=== PATIENT | female | born 1935 | race Caucasian/White ===

== ENCOUNTER 2017-01-08 12:29 | Emergency (ER) | payer MEDICARE, OTHER ==
[~2017-01-08] VITALS: Ht 170.2 cm; Wt 68.6 kg
[~2017-01-08 12:29] MED LIST: ALEN70TA2 PO; AMLO-39 PO; AMT25T PO; APIX2.5T PO; CHOL200025 PO; CREST10T PO; FERR159T2 PO; HYG25 PO; MAG DELAY64 MG PO; METF500T4 PO; MULT-1073 PO; OMEP20TA24 PO
--- NOTE | 2017-01-08 12:43 | ED.REPORT ---
HPI-Extremity Problem Lower Date of Service Jan 08, 2017 ED Provider: Dr. Galo Nunez MD An 81 year old female with a history of metastasized liver cancer on chemotherapy, A-fib on anticoagulation, diabetes mellitus, hypertension, hyperlipidemia, osteoporosis and peripheral neuropathy presents to the ED complaining of bilateral foot pain that began 2 weeks ago. The patient noticed new blisters on her feet 1 week ago that have become increasingly worse over the past few days. She reports pain during ambulation and gait. Patient has had red and peeling skin for the past few months secondary to chemotherapy. She denies any recent diaphoresis, chills or fever. Patient also reports experiencing some SOB that has been chronic for the past few months and is exacerbated by exertion. Nursing Notes Stated Complaint: FEET PAIN Chief Complaint: Extremity Trauma Nursing Notes Reviewed: Yes Allergies: Coded Allergies: naproxen (Verified Allergy, Severe, WELARLINE, 01/08/17) Scheduled Alendronate Sodium (Fosamax) 70 Mg Tablet 70 MG PO WEEKLY FRIDAYS Amitriptyline (Amitriptyline) 25 Mg Tab 50 MG PO HS Amlodipine (Norvasc) 5 Mg Tablet 5 MG PO DAILY Apixaban (Eliquis) 2.5 Mg Tablet 2.5 MG PO BID Chlorthalidone (Chlorthalidone) 25 Mg Tablet 12.5 MG PO DAILY Cholecalciferol (Vitamin D3) (Vitamin D3) 2,000 Unit Tablet 2,000 UNIT PO DAILY Ferrous Sulfate, Dried (Iron) 159 Mg Tablet.er 65 MG PO DAILY Magnesium (Mag Delay) 64 Mg Tab 64 MG PO DAILY Metformin (Metformin) 500 Mg Tablet 500 MG PO BIDWM Multivits-Min/FA/Lycopene/Lut (Centrum Silver Tablet) 1 Each Tablet 1 EACH PO DAILY Omeprazole Magnesium (Prilosec Otc) 20 Mg Tablet.dr 20 MG PO DAILY Rosuvastatin Calcium (Crestor) 10 Mg Tablet 5 MG PO DAILY General Time Seen by : 12:43 Chief Complaint Foot injury right, Foot injury left Hx Obtained From: Patient Arrived By: Walk-in Onset Occurred: 1 week ago Symptom Duration: Since onset Location: : Foot left: Foot right Quality: Painful Severity: Current: Moderate Severity: Maximum: Moderate Associated with: Reports: Unable to bear weight, Unable to walk, Denies: Fever Pertinent Negative: Pt denies other symptoms Recent Healthcare: No recent hospitalization, Recent doctor visit Past Medical History Past Medical History 1. Atrial fibrillation on anticoagulation for past 2-3 years (no history of cardioversion or ablations) 2. Diabetes type 2 3. HTN 4. Dyslipidemia 5. GERD 6. Osteoporosis 7. History of SBO x 4 (first time in 2003 and last one about 5 years ago and conservatively treated at [facility]) -no surgical intervention for any of the SBO 8. Endometrial cancer for which she underwent TOBY/BSO and radiation treatment in 1991 9. Peripheral neuropathy due to diabetes type 2 10. Osteoarthritis 11. Aortic stenosis Past Surgical History 1. TOBY/BSO in 1991 for endometrial cancer 2. Appendectomy 3 Left total knee replacement 4. Colonoscopy was normal about 5 years ago 5. Bilateral cataract surgeries 6. Pacemaker Family History Noncontributory Smoking History Never Smoker Social History Other Social History: Good social support, , Local resident Ambulatory Status Independent Review of Systems Redness/peeling skin on feet Constitutional: Denies: Chills, Fever Musculoskeletal: Reports: Extremity pain (Bilateral foot pain) Skin: Denies Diaphoresis Complete sys rev & neg: except as marked. Respiratory: Reports: Shortness of breath Physical Exam Initial Vital Signs Vital Signs (First) Date Time Temp Pulse Resp B/P Pulse Ox O2 Delivery O2 Flow Rate FiO2 01/08/17 12:45 36.1 53 16 139/42 93 Room Air Neck: Supple, Non-tender, Full range of motion Upper Extremities: Vascular intact, Neuro intact, No swelling, No tenderness Neurologic: Alert, Oriented, Nonfocal Psychiatric: Mood/affect normal, Behavior normal, Normal thought content Lower Extremity / Pelvis / MS: Atraumatic, Inspection NL, Neurologic intact, Vascular intact Ankle / Foot: Atraumatic, Neurologic intact, Vascular intact Right Foot: Negative: Erythema present, Swelling present..., Tenderness present..., Warmth present Left Foot: Negative: Erythema present, Swelling present..., Tenderness present..., Warmth present ANKLE/FOOT: Large bulla over the right foot General/Constitutional: Awake, Alert, No acute distress, Well appearing, Well developed Respiratory / Chest: Atraumatic, Breath sounds NL, Breath sounds = bilat, No respiratory distress Cardiovascular: Heart rate NL, Regular rhythm Heart Sounds / Murmur: Positive: Systolic murmur present.. (III/) Skin: Atraumatic, Color NL, Warm, Dry SKIN: peeling skin at the base of the foot Procedures Bulla skin is removed - 1257 Performed by ED physician. No Shahrzad Prepped with chlorhexidine. Removed with Scissor and forceps. Patient tolerates well. No complications. Antibiotic is applied. Xeroform gauze is applied. Re-Eval/Medical Decision Med Decision/Clinical Course I think that the lowest most likely explanation for this large bulla on her foot and the cracking peeling skin of her feet is related to a complication associated with her chemotherapy. I think that follow-up with her chemotherapy doctor in [place] as the next appropriate step. The large bulla on the back of her right foot was easily unroofed and dressed with sterile dressing. There is no evidence currently of infection. Re-Evaluation/Progress : Time of Eval: 12:52 Patient Status: Condition improved Re-Evaluation/Progress Note: Bulla is opened. xeroform gauze is applied. Pt tolerates procedure well. All questions about the intended treatment plan are addressed. She understands and agrees with the plan. Counseled Regarding: Diagnosis, Need for follow-up, When/why to return to ED Discharge & Departure Impression: Primary Impression: Bulla Disposition: Home Discharge Condition All VS Reviewed: Yes Condition: Improved Patient Instructions: Bldelphine (ED) Additional Instructions: Thank you for trusting us with your care this morning. Your emergency department results are reassuring that there is no dangerous cause for concern at this time and there are no signs of infection. I believe that your symptoms are likely a reaction to the chemotherapy. I recommend that you schedule an appointment with your oncologist in the next 2-3 days for a recheck. Keep the gauze over the affected area for the next few 24 hours. Change the dressing tomorrow. - First remove the bandage and clean the area with water. - Once dry, apply bacitracin ointment over the area and place the new bandage. Schedule a follow up appointment with your primary care physician in the next week for a recheck. Take pain medication as directed for pain. Please return to the emergency department if you begin to develop any new or worsening conditions including any high fevers, shaking chills, worsening pain, redness, swelling, warmth, or pustule drainage. Referrals: Jaime Obrien DO (PCP) Scribe Attestation Portions of this note were transcribed by Chelle Rm. I, Dr. Nunez personally performed the history, physical exam and medical decision-making; I reviewed and confirmed the accuracy of the information in the transcribed note. Signed by: Zuhair Gordon, 01/08/17 4217. copies to: Jaime Obrien Kirk H MD Jan 08, 2017 12:43 CHELLE RM Jan 08, 2017 12:50
[2017-01-08 12:45] VITALS: BP 139/42; PULSE 53; RESP 16; O2SAT 93
[2017-01-08 13:21] VITALS: BP 139/42; PULSE 53; RESP 16; O2SAT 93
== END 2017-01-08 13:22 | disposition home or self-care (01) ==
LOC: SED 12:29
DX: R23.8 Other skin changes (principal); M79.672 Pain in left foot; M79.671 Pain in right foot; E11.628 Type 2 diabetes mellitus with other skin complications; E11.43 Type 2 diabetes mellitus with diabetic autonomic (poly)neuropathy; I10 Essential (primary) hypertension; K21.9 Gastro-esophageal reflux disease without esophagitis; C22.9 Malignant neoplasm of liver, not specified as primary or secondary; Z85.44 Personal history of malignant neoplasm of other female genital organs; Z95.0 Presence of cardiac pacemaker; Z92.21 Personal history of antineoplastic chemotherapy; Z79.84 Long term (current) use of oral hypoglycemic drugs; Z79.01 Long term (current) use of anticoagulants; Z79.899 Other long term (current) drug therapy; Z88.8 Allergy status to other drugs, medicaments and biological substances
CPT/HCPCS: 11200; 99283; G0463

== ENCOUNTER 2017-01-17 09:48 | Day surgery (SDC) | payer MEDICARE, OTHER ==
[~2017-01-17] VITALS: Ht 157.5 cm; Wt 71.1 kg
[2017-01-17] MEDS ORDERED: Furosemide 10 mg/mL 4 mL Inj IVPUSH ONE (10:10)
[2017-01-17 16:45] VITALS: BP 157/67; PULSE 54; RESP 16; O2SAT 96
[2017-01-17 17:09] VITALS: PULSE 64
[2017-01-17 17:30] VITALS: BP 120/60; PULSE 50; RESP 16; O2SAT 96
[2017-01-17 17:35] LABS: Mean Corpuscular Hemoglobin 37.2 pg (27.0-35.0); Mean Corpuscular Volume 114.7 fL (81-100)
[2017-01-17] MEDS ORDERED: Furosemide 10 mg/mL 2 mL Inj ONE (17:38)
[2017-01-17 17:58] LABS: Magnesium 1.7 mg/dL (1.6-2.6)
[2017-01-17] MEDS ORDERED: HepLOK Flush 100 unit/mL 5 mL Inj ONE (19:34)
--- NOTE | 2017-01-17 19:45 | NUR ---
IV Lasix: Patient arrived via wheelchair to [facility] [place] [facility]. Labs drawn and ordered Lasix 40 mg IV given via portacath. [place] [address]. Voided total of 800 mLs, lost 0.[address] May called and notified of labs and patient condition. Okay to send patient home. Plan is for Dr. May to follow up with patient in office next week. Portacath flushed with NS and Heparin and portacath d/c'd. Patient discharged home via wheelchair accompanied by .
== END 2017-01-17 23:59 | disposition home or self-care (01) ==
LOC: MOCO 09:48
PROVIDERS: ATTEND Internal Medicine
DX: I50.9 Heart failure, unspecified (principal)
CPT/HCPCS: 36415; 80053; 83735; 83880; 85027; 96374; G0463; J1642; J1940

== ENCOUNTER 2017-01-26 14:23 | Inpatient (IN) | payer MEDICARE, OTHER ==
[2017-01-26] VITALS (8 sets, daily range): BP systolic 120–160; BP diastolic 28–81; PULSE 55–58; RESP 14–20; O2SAT 88–100
[~2017-01-26] VITALS: Ht 170.2 cm; Wt 74.1 kg
[2017-01-26] MEDS ORDERED: Ondansetron 2 mg/mL 2 mL Inj IVPUSH ONE (14:30)
--- NOTE | 2017-01-26 14:34 | ED.REPORT ---
HPI-Extremity Problem Lower Date of Service Jan 26, 2017 ED Provider: Chidi Dunne MD 81 y/o female on eliquis and with a hx of metastasized liver cancer on chemotherapy, A-fib on anticoagulation, diabetes mellitus, hypertension, hyperlipidemia, osteoporosis and peripheral neuropathy presents to the ED complaining of right food pain, onset a couple of weeks. The pt was sent to the ED by Dr. May due to ischemic lower leg and admission for a possible femoral blockage as well as palliative care consultation. The pt has a worsening ulcer developing on the top of her foot. She has been taking 5mg oxycodone for the last two days, with some relief. The pt also complains of right rib pain after a fall last night. As per her , he was helping her get on the bed using a step when she fell backwards and they heard a pop. She did not directly land on the floor and did not hit her head or lose consciousness. The pt also complains of shortness of breath and states "I want to grunt". Nursing Notes Stated Complaint: RT FOOT/POSS FEMORAL BLOCKAGE/SENT BY DOCTOR Nursing Notes Reviewed: Yes ([employer] not reconciled - EMR indicates Eliquis use) Allergies: Coded Allergies: naproxen (Verified Allergy, Severe, WELTS, 01/08/17) Scheduled Alendronate Sodium (Fosamax) 70 Mg Tablet 70 MG PO WEEKLY FRIDAYS Amitriptyline (Amitriptyline) 25 Mg Tab 50 MG PO HS Amoxicillin (Amoxicillin) 500 Mg Capsule 500 MG PO BID Apixaban (Eliquis) 2.5 Mg Tablet 2.5 MG PO BID Cholecalciferol (Vitamin D3) (Vitamin D3) 2,000 Unit Tablet 2,000 UNIT PO DAILY Ferrous Sulfate (Ferrous Sulfate) 325 Mg Tablet 325 MG PO DAILY Folic Acid (Folic Acid) 0.8 Mg Capsule 0.8 MG PO QPM Furosemide (Furosemide) 80 Mg Tab 80 MG PO QAM Hydrocodone-Acetaminophen 5-325 mg (Hydrocodone-Acetaminophen 5-325 mg) 1 Each Tablet 1 EACH PO Q4hrs Magnesium Chloride (Mag64) 64 Mg Tablet.er 64 MG PO DAILY Multivits-Min/FA/Lycopene/Lut (Centrum Silver Tablet) 1 Each Tablet 1 EACH PO DAILY Omeprazole Magnesium (Prilosec Otc) 20 Mg Tablet.dr 20 MG PO DAILY Potassium Chloride (Potassium Chloride) 20 Meq Tab.er.prt 20 MEQ PO BID Potassium Chloride ER (Potassium Chloride ER) 8 Meq Tablet 8 MEQ PO Q2D Rosuvastatin Calcium (Crestor) 10 Mg Tablet 5 MG PO DAILY Scheduled PRN Acetaminophen (Acetaminophen) 500 Mg Tablet 500 MG PO Q6H PRN PRN For Pain Loperamide (Loperamide) 2 Mg Capsule 4 MG PO Q4H PRN PRN For Diarrhea or Loose Stool Ondansetron (Ondansetron) 8 Mg Tablet 8 MG PO TID PRN PRN For Nausea Prochlorperazine Maleate (Prochlorperazine) 10 Mg Tablet 10 MG PO QID PRN PRN For Nausea General Time Seen by MD: 14:28 Chief Complaint Other (right foot pain) Hx Obtained From: Patient, Spouse, Son Arrived By: Wheelchair Onset Occurred: More than a week ago... 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 Hale a few days ago (01/2017) Past Medical History 1. Atrial fibrillation on anticoagulation for past 2-3 years (no history of cardioversion or ablations) (on Eliquis) 2. Diabetes type 2 3. HTN 4. Dyslipidemia 5. GERD 6. Osteoporosis 7. History of SBO x 4 (first time in 2003 and last one about 5 years ago and conservatively treated at [facility]) -no surgical intervention for any of the SBO 8. Endometrial cancer for which she underwent TOBY/BSO and radiation treatment in 1991 9. Peripheral neuropathy due to diabetes type 2 10. Osteoarthritis 11. Aortic stenosis (critical, not candidate for mechanical intervention) 12. Mitral valve stenosis (critical, not candidate for mechanical intervention) 13. Metastatic cholangiocarcinoma Past Surgical History 1. TOBY/BSO in 1991 for endometrial cancer 2. Appendectomy 3 Left total knee replacement 4. Colonoscopy was normal about 5 years ago 5. Bilateral cataract surgeries 6. Pacemaker Family History Noncontributory Smoking History Never Smoker Social History Other Social History: Good social support, , Local resident Ambulatory Status Independent Review of Systems Reports: ulcer on right foot Reports: right side rib pain Musculoskeletal: Reports: Extremity pain (right foot pain) Neurologic: Denies: Change LOC Complete sys rev & neg: except as marked. Respiratory: Reports: Shortness of breath Physical Exam Initial Vital Signs Vital Signs (First) Date Time Temp Pulse Resp B/P Pulse Ox O2 Delivery O2 Flow Rate FiO2 01/26/17 14:37 36.3 55 14 121/62 93 Room Air 01/26/17 16:29 2 Initial VS: Reviewed Head / Eyes: Atraumatic, Normocephalic Neck: Supple, Non-tender, Full range of motion Abdomen / GI: Soft, Non-tender Upper Extremities: Vascular intact, Neuro intact, No swelling, No tenderness Skin: Warm, Dry, No cyanosis Neurologic: Alert, Oriented, Nonfocal Lower Extremity / Pelvis / MS: Atraumatic, No deformity, Neurologic intact Right Leg / Calf: Positive: Pulses distal absent, Swelling present... (Moderate ), Negative: Warmth present Left Leg / Calf: Positive: Pulses distal decreased Right leg dusky and cool. Left leg edematous with warmth. Ankle / Foot: Atraumatic, No deformity, Neurologic intact Ichemic toes with skin breaking down. General/Constitutional: Awake, Alert Distress / Hydration: Positive: Distress moderate Appearance / Presentation: Positive: Cachectic, Ill appearing/not toxic ( chronically Ill), Uncomfortable Respiratory / Chest: Atraumatic, Breath sounds NL, Breath sounds = bilat, No respiratory distress, No rales, No rhonchi, No wheezing, No crepitus Port-a-cath in place Mild right sided chest tenderness No subcutaneous emphysema Cardiovascular: Heart rate NL, Regular rhythm, No gallop, No rubs Heart Sounds / Murmur: Positive: Murmur present... (III/) Interpretation & Diagnostics Lab Results Interpretation Result Diagram: 01/26/17 1534 01/26/17 1534 Test 01/26/17 15:34 01/26/17 15:55 White Blood Count 15.1th/mm3 (3.8-10.1) Red Blood Count 3.46mil/mm3 (3.90-5.20) Hemoglobin 12.4g/dL (12.0-15.6) Hematocrit 37.6% (35.0-46.0) Mean Corpuscular Volume 108.7fL (81-100) Mean Corpuscular Hemoglobin 35.8pg (27.0-35.0) Mean Corpuscular Hemoglobin Concent 33.0% (32.0-37.0) Red Cell Distribution Width 14.7% (12.3-15.4) Platelet Count 125bil/L (150-400) Neutrophils (%) (Auto) 88.5% (40-74) Lymphocytes (%) (Auto) 2.1% (14-46) Monocytes (%) (Auto) 9.0% (4-12) Eosinophils (%) (Auto) 0% (0-5) Basophils (%) (Auto) 0.1% (0-3) Sodium Level 133mEq/L (134-144) Potassium Level 5.5mEq/L (3.5-5.2) Chloride Level 90mEq/L (97-108) Carbon Dioxide Level 26mmol/L (18-29) Blood Urea Nitrogen 50mg/dL (8-27) Creatinine 1.36mg/dL (0.57-1.00) Estimat Glomerular Filtration Rate 53mL/min (>59) Glucose Level 259mg/dL (60-99) Calcium Level 9.0mg/dL (8.5-10.1) Total Bilirubin 1.9mg/dL (0.0-1.2) Aspartate Amino Transf (AST/SGOT) 27U/L (0-50) Alanine Aminotransferase (ALT/SGPT) 19U/L (0-32) Alkaline Phosphatase 86U/L (25-165) Total Creatine Kinase 48U/L (21-215) Total Protein 6.1g/dL (6.4-8.4) Albumin 3.3g/dL (3.4-5.0) Lactic Acid Level 2.1mmol/L (0.4-2.0) Lab Results Interpretation: He received positive leukocytosis CMP mild renal insufficiency, borderline potassium, moderately elevated glucose Lactic acid elevated CK normal ECG Interpretation ECG Interpretation: Ventricular paced rhythm. Rate 55. No significant change from previous ECG. Time: 15:06 Interpreted by: ED physician X-Ray Chest Interpretation Chest Xray Interpretation: IMPRESSION: 1. Bilateral perihilar infiltrates suspicious for pulmonary edema secondary to congestive heart failure. 2. Small bilateral pleural effusions. 3. Limited evaluation of the ribs due to osteopenia and technique. Dictated by: Hernan Klein M.D. on 01/26/2017 at 16:05 Approved by: Hernan Klein M.D. on 01/26/2017 at 16:10 View: Portable, 1 view Interpretation / Wet Read by: Interpret - Radiologist Re-Eval/Medical Decision Med Decision/Clinical Course This is an unfortunate, complicated 81-year-old female multiple comorbidities that includes severe coronary disease, critical aortic and mitral valve stenosis that is not amenable to surgical management, and a history of metastatic cholangiocarcinoma who is referred by the cardiology office for admission secondary to ischemic right leg. In recent weeks patient's developed increasing pain and discomfort, swelling and ulceration of the right foot. Please see the podiatry consultation a few days ago, vascular ultrasound revealed ischemic disease, and according to Dr. May, recent imaging obtained at outside facilities here trying to sort out if she was a candidate for surgical intervention on the valvular disease of the heart, revealed significant occlusion of the iliac. The patient is now developed rest pain, increasing pain and discomfort, cold foot, and despite initiation of oxycodone 2 days ago remains very uncomfortable-so was referred to the emergency department. Dr. 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 Additionally Dr. Angeles Palafox requested palliative care consultation. On arrival the patient arrives in significant pain and discomfort. She has a swollen, ischemic right leg, she has no palpable pulses in the foot is cool with several early necrotic toes. His dorsal ulceration, I do not appreciate overt signs of infection on clinical exam, but the patient's with high wrist has moderate leukocytosis, and was started on IV Zosyn. Patient has a history of atrial fibrillation and is chronically anticoagulated and Eliquis has had today's dose. I discussed with cardiology and pharmacy, the patient's being started on a heparin drip without a bolus to transition to a titratable anticoagulant given the possibility of ammunition assembly ii laborer intervention at some point. The patient's titrated pain medicine with clinical improvement. I briefly discussed the case with personnel from the palliative care team, and formal consultation been requesting likely occur tomorrow. She is being managed for pain control, and consultations as described above. Source of Hx: Old records Re-Evaluation/Progress : Time of Eval: 17:35 Re-Evaluation/Progress Note: Rechecked pt. Discussed lab results, imaging results, diagnosis and plan to admit. Pt understands and agrees with the plan for admission. All questions addressed. Consultation #1: Call Returned at: 14:53 Float Operator: Agrees with plan Note: Nurse for palliative care agrees with the plan. Consultation #2: Referral / Consult Name: Lokesh Turcios Consulted With: Hospitalist Call Returned at: 16:49 Float Operator: Will see patient, Agrees with eval, Agrees with plan, Accepts admit Differential Diagnosis: Positive: Arterial occlus/ischemia, Negative: Abrasion, Compartment syndrome, Greater trochant fracture, Laceration, Open fracture, Sprain, Strain, Tripod fracture Counseled Regarding: Diagnosis, Lab results, Need for admission Discharge & Departure Impression: Primary Impression: Ischemia of right lower extremity Additional Impression: Anticoagulated by anticoagulation treatment Disposition: ADMITTED TO HOSPITAL Discharge Condition All VS Reviewed: Yes Referrals: Jaime Obrien DO (PCP) Scribe Attestation Portions of this note were transcribed by Oriana Pineda. I,, personally performed the history, physical exam and medical decision-making;I reviewed and confirmed the accuracy of the information in the transcribed note. Signed by Zuhair Wrne. 01/26/17 17:36 copies to: Jaime Obrien Matthew F MD Jan 26, 2017 14:34 Oriana Pineda Jan 26, 2017 14:44
[2017-01-26] MEDS ORDERED: Heparin 25K Unit/500mL 0.45 NS 25,000 UNIT in IV Premix 1 EACH IV ONE (14:45)
[2017-01-26] MEDS: HYDROmorphone 0.5 mg/0.5 mL iSecure Syringe IVPUSH PRN ×2 (15:34→15:57)
[2017-01-26 15:38] LABS: BASOPHILS % (AUTO) 0.1 % (0-3); EOSINOPHILS % (AUTO) 0 % (0-5); Mean Corpuscular Hemoglobin 35.8 pg (27.0-35.0); Mean Corpuscular Volume 108.7 fL (81-100); NEUTROPHILS % (AUTO) 88.5 % (40-74); Platelet Count 125 bil/L (150-400)
[2017-01-26] MEDS ORDERED: Piperacillin-Tazo 3.375 Gm Inj 3.375 GM in Dextrose 5% Minibag Plus 50 ML IV ONE (15:50)
[2017-01-26] MEDS ORDERED: ACET-171 PO (16:08)
[2017-01-26] MEDS ORDERED: AMOX500C2 PO (16:08)
[2017-01-26] MEDS ORDERED: HYDR-4003 PO (16:08)
[2017-01-26] MEDS ORDERED: FRSM80T PO (16:08)
[2017-01-26] MEDS ORDERED: FOLI0.8C PO (16:08)
[2017-01-26] MEDS ORDERED: LOPE2CAP PO (16:11)
[2017-01-26] MEDS ORDERED: POTA20TA16 PO (16:11)
[2017-01-26] MEDS ORDERED: POTA8TAB8 PO (16:11)
[2017-01-26] MEDS ORDERED: ONDA-54 PO (16:11)
--- NOTE | 2017-01-26 16:12 | DRSVH ---
PROCEDURE: X-RAY CHEST ONE VIEW, PORTABLE ([id number]) INDICATIONS: 81 year-old woman with chest pain after fall. TECHNIQUE: One view of the chest was acquired. COMPARISON: [facility], CR, XR CHEST 1VW, 01/03/2017, 15:19. [facility], CR, XR CHEST 1VW (PORTABLE), 05/14/2016, 15:38. FINDINGS: Surgical changes and devices: There is a cardiac pacemaker in expected position. A Port-A-Cath is se en on the right. Lungs and pleura: Bilateral perihilar infiltrates consistent with pulmonary edema. There is a small right pleural effusion and possible trace left pleural effusion. No pleural effusions or pneumothorax . Mediastinum: Mediastinal contours appear normal. Heart size is normal. Bones and chest wall: No suspicious bony lesions. Overlying soft tissues appear unremarkable. Bila teral shoulder joint degeneration. IMPRESSION: 1. Bilateral perihilar infiltrates suspicious for pulmonary edema secondary to congestive heart failu re. 2. Small bilateral pleural effusions. 3. Limited evaluation of the ribs due to osteopenia and technique. Dictated by: Hernan Klein M.D. on 01/26/2017 at 16:05 Approved by: Hernan Klein M.D. on 01/26/2017 at 16:10
[2017-01-26] MEDS ORDERED: PROC10TA PO (16:14)
[2017-01-26] MEDS ORDERED: OMEP20TA24 PO (16:14)
[2017-01-26] MEDS ORDERED: FERR-83 PO (16:15)
[2017-01-26] MEDS ORDERED: MAGN64TA7 PO (16:23)
[2017-01-26] MEDS ORDERED: Alum-Mag Hydrox-Simeth 30 mL Suspension PO PRN (16:55)
[2017-01-26] MEDS ORDERED: HYDROcodone-APAP 5-325 mg Tablet PO PRN (16:55)
[2017-01-26] MEDS ORDERED: Polyethylene Glycol (PEG) 17 Gm Powder PO PRN (16:55)
[2017-01-26] MEDS ORDERED: Ondansetron 2 mg/mL 2 mL Inj IVPUSH PRN (16:55)
[2017-01-26] MEDS ORDERED: Heparin 25K Unit/500mL 0.45 NS 25,000 UNIT in IV Premix 1 EACH IV SCH (18:05)
--- NOTE | 2017-01-26 18:11 | PCM.HPMED ---
Subjective Date of Service Jan 26, 2017 Primary Provider: Admitting Physician: Lokesh Turcios DO Primary Care Physician: Jaime Obrien DO Attending Physician: Lokesh Turcios DO Chief Complaint: Ischemic right foot History of Present Illness: Patient is an 81-year-old female past medical history significant for metastatic liver cancer on chemotherapy up until 2 months ago, in addition to atrial fibrillation, diabetes mellitus hypertension osteoporosis, and more recently peripheral artery disease leading to occlusion and finally complete cessation of blood flow to right lower extremity. Given poor response to chemotherapy progression of cancer patient had been moving a palliative direction for past 2 months, and given extensive medical history when she initially developed ischemic right lower extremity it was thought supportive care was patient's best intervention. She had been seen by health outcomes liaison couple days prior who felt no intervention could be considered, however on follow-up visit with parking enforcement manager Dr. May earlier today there was some consideration of possible thrombolytic to be to restore blood flow to foot. Though this would offer little benefit the patient's multiple comorbidities, it may offer some palliation of pain significantly improve but life patient has left. Family agrees as this patient that her throat measures are not with there desiring however they are hopeful that this relatively noninvasive procedure to restore blood flow and in addition restore good deal of ambulation and quality of life in addition to reducing pain. has additional concern for right rib which he heard pop last night while assisting his to bed. Patient has pre-existing effusion on right side, does not cause significant respiratory distress but does cause mild increase in work of breathing. During my evaluation addition to reviewing history detailed above, I confirm the patient that though she does not desire heroic intervention, she is willing to accept a moderate degree of risk if it may offer an improved quality of life. Her pain has been well-controlled at this point with a lower dose of oxycodone as prescribed a couple of days prior since ischemic foot developed. At time of my evaluation patient notes pain present but not severe. Said shortness of breath is mild but her baseline over past couple of weeks. Denies any overt chest pains or palpitations. Appetite has been good she has not endorsed any nausea or vomiting recently. No fever chills noted. Review of Systems: 10 point review of systems is conducted entirely negative except for pertinent positives and negatives included above history of present illness Allergies Coded Allergies: naproxen (Verified Allergy, Severe, WELTS, 01/08/17) Home Medications Alendronate Sodium (Fosamax) 70 Mg Tablet 70 MG PO WEEKLY FRIDAYS Amitriptyline (Amitriptyline) 25 Mg Tab 50 MG PO HS Amoxicillin (Amoxicillin) 500 Mg Capsule 500 MG PO BID Apixaban (Eliquis) 2.5 Mg Tablet 2.5 MG PO BID Cholecalciferol (Vitamin D3) (Vitamin D3) 2,000 Unit Tablet 2,000 UNIT PO DAILY Ferrous Sulfate (Ferrous Sulfate) 325 Mg Tablet 325 MG PO DAILY Folic Acid (Folic Acid) 0.8 Mg Capsule 0.8 MG PO QPM Furosemide (Furosemide) 80 Mg Tab 80 MG PO QAM Hydrocodone-Acetaminophen 5-325 mg (Hydrocodone-Acetaminophen 5-325 mg) 1 Each Tablet 1 EACH PO Q4hrs Magnesium Chloride (Mag64) 64 Mg Tablet.er 64 MG PO DAILY Multivits-Min/FA/Lycopene/Lut (Centrum Silver Tablet) 1 Each Tablet 1 EACH PO DAILY Omeprazole Magnesium (Prilosec Otc) 20 Mg Tablet.dr 20 MG PO DAILY Potassium Chloride (Potassium Chloride) 20 Meq Tab.er.prt 20 MEQ PO BID Potassium Chloride ER (Potassium Chloride ER) 8 Meq Tablet 8 MEQ PO Q2D Rosuvastatin Calcium (Crestor) 10 Mg Tablet 5 MG PO DAILY Scheduled PRN Acetaminophen (Acetaminophen) 500 Mg Tablet 500 MG PO Q6H PRN PRN For Pain Loperamide (Loperamide) 2 Mg Capsule 4 MG PO Q4H PRN PRN For Diarrhea or Loose Stool Ondansetron (Ondansetron) 8 Mg Tablet 8 MG PO TID PRN PRN For Nausea Prochlorperazine Maleate (Prochlorperazine) 10 Mg Tablet 10 MG PO QID PRN PRN For Nausea PMH 1. Atrial fibrillation on anticoagulation for past 2-3 years (no history of cardioversion or ablations) (on Eliquis) 2. Diabetes type 2 3. HTN 4. Dyslipidemia 5. GERD 6. Osteoporosis 7. History of SBO x 4 (first time in 2003 and last one about 5 years ago and conservatively treated at [facility]) -no surgical intervention for any of the SBO 8. Endometrial cancer for which she underwent TOBY/BSO and radiation treatment in 1991 9. Peripheral neuropathy due to diabetes type 2 10. Osteoarthritis 11. Aortic stenosis (critical, not candidate for mechanical intervention) 12. Mitral valve stenosis (critical, not candidate for mechanical intervention) 13. Metastatic cholangiocarcinoma Surgical History 1. TOBY/BSO in 1991 for endometrial cancer 2. Appendectomy 3 Left total knee replacement 4. Colonoscopy was normal about 5 years ago 5. Bilateral cataract surgeries 6. Pacemaker Family History Patient can recall no significant family history of either parent Social History Hx Alcohol Use: No Hx Substance Use: No Hx Tobacco Use: No Smoking Status: Never Smoker Exam Vital Signs Vital Sign - Last Date Time Temp Pulse Resp B/P Pulse Ox O2 Delivery O2 Flow Rate FiO2 01/26/17 18:00 36.4 56 17 124/56 92 Nasal Cannula 2.00 General: Alert, Oriented X3, Cooperative, Moderate Distress, Other (patient suffers from severe muscle wasting, cachectic in appearance. ) Eyes: PERRLA, Other (mild scleral icterus) Mouth: Mucous Membr Moist/[place] Chest & Lungs: Chest Wall Normal (chest wall is significant for Ahlagd-t-Euoj present on right side as well as pacemaker present on left side), Other (there are diminished breath sounds on right side and crackles noted in left lung base) Cardiovascular: Other (irregular rate with regular rhythm) Extremities: Other (right lower extremity is clearly cyanotic with no pulse palpable and dorsal pedis region. It is extremely painful to touch there is a large ulceration on dorsal aspect of foot in addition to smaller petechial changes and some necrotic areas noted on multiple digits of right foot. Left lower extremity also demonstrates some degree of ischemia but there is only redness and no mateusz blackness or necrosis visible on this foot, neither is there any open ulcerations present. Pulses are diminished but palpable on left side and dorsal pedis region. ) Neurological: Grossly Neurologically Intact Lab and Diagnostics Result Diagram: 01/26/17 1534 01/26/17 1534 Assessment & Plan This patient is a very unfortunate 81-year-old female with metastatic carcinoma of liver in addition to multiple cardiovascular conditions likely leading to 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 #. Ischemic right lower extremity - Given the necrosis and skin breakdown in addition to questionable evidence of infection we will continue patient on Zosyn at this time which was initially provided in emergency department - Cardiology has already referred patient to emergency department and will follow along with care. Dr. May will be discussing case with supervisor delivery department [employer] consultant tomorrow to consider possibility of thrombolectomy in next 1-2 days - Partial pain relief has been achieved with patient's home medication of oxycodone, will provide additional when necessary medications while patient here including IV morphine. May consider titrating her medications to effect #Metastatic liver cancer - This has been determined to be a terminal condition, and as such chemotherapy has ceased as of 2 months prior - If patient's hospitalization improved prolonged may consider reviewing case further with oncologist during this hospitalization - Given patient's multiple comorbidities, and very complex medical conditions in addition to this refractory cancer, palliative care has been consulted to consider best possible interventions during this hospitalization and moving forward on the request of Dr. May. #Atrial fibrillation - Patient had them on Eloquis, but given possible surgical procedure by interventional cardiology will transition to heparin drip at this time which would more easily reversed if surgical intervention is undergone - We will continue to monitor on telemetry overnight, the patient appears hemodynamically stable emergency department. #Cardiovascular disease #Congestive heart failure #Valvular heart disease - Continue patient's home medications including statin #Pleural effusion - Supplemental oxygen as needed - Continue Lasix therapy - May consider drainage while anticoagulation therapy is reversed if breathing function becomes more compromised #Osteoporosis - Continue weekly Alendronate in addition to vitamin D supple mentation. #Hyperkalemia: - Holding home supplement - Continue to trend. - Monitoring on telemetry Pain Evaluation: Adequate Pain Control VTE Prophylaxis: Other (heparin drip, per cardiac protocol. ) Resuscitation Status: DNR/DNI:Do Not Resuscitate/Intubate Time spent 65 minutes Lokesh Turcios DO Jan 26, 2017 18:10
[2017-01-26] MEDS ORDERED: Ondansetron 8 mg ODT Tablet PO PRN (18:20)
--- NOTE | 2017-01-26 18:31 | NUR ---
Admit Patient report called by Oscar Linares RN in ED. Patient arrived to room 3012 via gurney and was slid over with slider board. Patient was in intolerable pain of 10/10 pain to right leg. Patient was administered IV morphine 2mg PRN as ordered. Patient has large circular wound on top of right foot. Patient toes on right foot are dark blue in color and dry skin. Patient right heal is cracked. Right leg cold to touch. Patient alert, but confused at times. Patient heparin drip running at 800units/Kg/hr. Patient next PTT ordered for 1030. Patient oriented to room, staff, visiting hours, call light and television. Addendum: 01/26/17 at 1848 by ANGELICA VELAZQUEZ RN Wound on top of right food measures [id number]. Addendum: 01/26/17 at 1856 by ANGELICA VELAZQUEZ RN Correction to right foot sore [id number] not cm
[2017-01-26] MEDS ORDERED: Potassium Chloride 20 mEq SR Tablet PO SCH (20:30)
[2017-01-26] MEDS: Heparin Protocol Boluses IVPUSH PRN (22:30)
[2017-01-27] VITALS (10 sets, daily range): BP systolic 104–137; BP diastolic 53–67; PULSE 54–60; RESP 18–20; O2SAT 87–97
[2017-01-27] MEDS: Piperacillin-Tazo 3.375 Gm Inj 3.375 GM in Dextrose 5% Minibag Plus 50 ML IV SCH ×3 (00:34→17:18)
[2017-01-27 01:35] LABS: APPEARANCE,URINE CLEAR (CLEAR,HAZY); COLOR,URINE YELLOW (YELLOW); OCCULT BLOOD,URINE NEGATIVE (NEGATIVE); UROBILINOGEN,URINE NORMAL (NORMAL)
[2017-01-27 04:46] LABS: Mean Corpuscular Hemoglobin 36.3 pg (27.0-35.0); Mean Corpuscular Volume 112 fL (81-100)
[2017-01-27 04:47] LABS: BASOPHILS % (AUTO) 0 % (0-3); EOSINOPHILS % (AUTO) 0 % (0-5); MONOCYTES % (AUTO) 11 % (4-12); NEUTROPHILS % (AUTO) 85 % (40-74); Platelet Count 132 bil/L (150-400)
--- NOTE | 2017-01-27 06:27 | NUR ---
Pain/Resp Pt with intermittent R foot pain, Morphine IV given x2 with good results. Pt [place] and intermittently confused but very pleasant. Unable to palpate pedal pulses r/t wound on top of foot and pt unable to tolerate any touch to her feet. Pt placed on 2L O2 per NC due to pt desating into high 80's on RA while asleep.
[2017-01-27] MEDS ORDERED: 0.9% Sodium Chloride 1,000 ML IV SCH (08:15)
--- NOTE | 2017-01-27 08:23 | PCM.PNMED ---
Subjective Date of Service Jan 27, 2017 Subjective Pt had difficulty night. [place] cold at times. Difficulty sleeping. Notes feeling "out of it" and "not myself", unsure in pain medications are playing a role, though they at least controlled her pain. Denies fever/chills this morning. Does have some appetite but NPO for possible procedure. Exam Vital Signs Vital Sign - Last Date Time Temp Pulse Resp B/P Pulse Ox O2 Delivery O2 Flow Rate FiO2 01/27/17 06:18 55 01/27/17 05:20 36.2 18 137/67 97 Nasal Cannula 4.00 Intake and Output 01/26/17 01/26/17 01/27/17 Cumulative From/Thru 15:00 23:00 07:00 01/26/17 14:37 - 01/27/17 05:54 Intake Total 50 ml 0 ml 50 ml Output Total 200 ml 200 ml Balance 50 ml -200 ml -150 ml Intake Oral 0 ml 0 ml IV Total 50 ml 50 ml Output Urine Total 200 ml 200 ml Exam General: Alert, Oriented X3, Cooperative, Moderate Distress, Patient suffers from severe muscle wasting, cachectic in appearance. ) Eyes: PERRLA, Mouth: Mucous Membranes Moist/[place] Chest & Lungs: Chest Wall Normal (chest wall is significant for Mdcqcz-e-Elrt present on right side as well as pacemaker present on left side), Other (there are diminished breath sounds on right side and crackles noted in left lung base) Cardiovascular: Irregular rate with bradycardia (+)Loud systolic mummur palpable Extremities: Right lower extremity is clearly cyanotic with no pulse palpable in dorsal pedis region though some warmth is present suggested at least some limtied blood flow. It is extremely painful to touch there is a large ulceration on dorsal aspect of foot in addition to smaller petechial changes and some necrotic areas noted on multiple digits of right foot. Left lower extremity also demonstrates some degree of ischemia but there is only redness and no mateusz blackness or necrosis visible on this foot, neither is there any open ulcerations present. Pulses are diminished but palpable on left side and dorsal pedis region. Neurological: Grossly Neurologically Intact IVs and Medications Medications Reviewed: Medications were reviewed in detail Lab and Diagnostics Result Diagram: 01/27/17 0430 01/27/17 0430 Assessment & Plan This patient is a very unfortunate 81-year-old female with metastatic carcinoma of liver in addition to multiple cardiovascular conditions likely leading to 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 #. Ischemic right lower extremity - Given the necrosis and skin breakdown in addition to questionable evidence of infection we will continue patient on Zosyn at this time which was initially provided in emergency department - Cardiology has already referred patient to emergency department and will follow along with care. Dr. May will be discussing case with rolled glass crosscutter nurse practitioner per diem tomorrow to consider possibility of thrombolectomy in next 1-2 days. Consult remains pending. - Partial pain relief has been achieved with patient's home medication of oxycodone, will provide additional when necessary medications while patient here including IV morphine. May consider titrating her medications to effect, does appear to have impomaired pt's mentation to a degree. - Pt kept NPO for possible procedure, IVFs started in response. #Metastatic liver cancer - This has been determined to be a terminal condition, and as such chemotherapy has ceased as of 2 months prior - If patient's hospitalization improved prolonged may consider reviewing case further with oncologist during this hospitalization - Given patient's multiple comorbidities, and very complex medical conditions in addition to this refractory cancer, palliative care has been consulted to consider best possible interventions during this hospitalization and moving forward on the request of Dr. May. #Atrial fibrillation - Patient had them on Eloquis, but given possible surgical procedure by interventional cardiology now held and patient maintained on heparin drip - We will continue to monitor on telemetry . Pt hemodynamically stable, rate low to normal. #Cardiovascular disease #Congestive heart failure #Valvular heart disease - Continue patient's home medications including statin #Pleural effusion - Supplemental oxygen as needed - Continue Lasix therapy - May consider drainage while anticoagulation therapy is reversed if breathing function becomes more compromised #Osteoporosis - Continue weekly Alendronate in addition to vitamin D supple mentation. #Hyperkalemia: #Hyperglycemia/DM - Holding home supplement - GIven NPO status and elevated K+ providing REGULAR insilun sliding scale, May transition to Lispro if diet started/K+ Normalizes. - Continue to trend. - Monitoring on telemetry Pain Evaluation: Adequate Pain Control VTE Prophylaxis: Other (heparin drip, per cardiac protocol. ) Resuscitation Status: DNR/DNI:Do Not Resuscitate/Intubate Time spent 30 minutes Lokesh Turcios DO Jan 27, 2017 08:23
--- NOTE | 2017-01-27 09:00 | NUR ---
non-blanchable/possible pressure ulcer Upon assessment this nurse noticed a non-blanchable area on pts coccyx with skin breakdown/possible press measuring [id number] no drainage. Placed mepolex dressing over area, placed order for wound care. Called for P500 but none were available. Performed Q2 turns when pt would allow.
[2017-01-27] MEDS: Pantoprazole 40 mg ER24 Tablet PO SCH (09:11)
[2017-01-27] MEDS: Magnesium Chloride SR 64 mg ER24 Tablet PO SCH (09:11)
[2017-01-27] MEDS: Insulin Human REGular 300 Unit/3 mL Inj SUBQ SCH ×2 (09:12→14:55)
--- NOTE | 2017-01-27 11:23 | PCM.CHPCAR ---
Consult Subjective Date of service Jan 27, 2017 Date of admit Jan 26, 2017 at 16:59 Provider Requesting Consult Requesting Provider: Lokesh Turcios DO Primary Care Physician Primary Care Physician: Jaime Obrien DO Chief Complaint Nonhealing right foot ulcer History of Present Illness 81 yo elderly frail very medically complex woman with history of metastatic cholangiocarcinoma, critical aortic stenosis, severe mitral stenosis, diastolic heart failure, and peripheral artery disease admitted with nonhealing right foot ulcer. Patient has been chronically ill for the past few months due to her very severe multiple complex illnesses. However, she has had this wound on her right foot for the past couple of weeks that has gotten worse. She saw Dr. May yesterday in cardiology clinic and was admitted to the hospital for further care of her right foot ulcer. On history, her biggest concerns today are fatigue and shortness of breath along with right foot pain. She feels comfortable resting with oxygen but is not able to much activity. Denies chest pain or syncope. Also denies fevers or chills. 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 # HTN # Diabetes # Recurrent intrahepatic cholangiocarcinoma Bedside Blood Glucose: 221 Scheduled Alendronate Sodium (Fosamax) 70 Mg Tablet 70 MG PO WEEKLY (Reported) FRIDAYS Amitriptyline (Amitriptyline) 25 Mg Tab 50 MG PO HS (Reported) Amoxicillin (Amoxicillin) 500 Mg Capsule 500 MG PO BID (Reported) Apixaban (Eliquis) 2.5 Mg Tablet 2.5 MG PO BID (Reported) Cholecalciferol (Vitamin D3) (Vitamin D3) 2,000 Unit Tablet 2,000 UNIT PO DAILY (Reported) Ferrous Sulfate (Ferrous Sulfate) 325 Mg Tablet 325 MG PO DAILY (Reported) Folic Acid (Folic Acid) 0.8 Mg Capsule 0.8 MG PO QPM (Reported) Furosemide (Furosemide) 80 Mg Tab 80 MG PO QAM (Reported) Hydrocodone-Acetaminophen 5-325 mg (Hydrocodone-Acetaminophen 5-325 mg) 1 Each Tablet 1 EACH PO Q4hrs (Reported) Magnesium Chloride (Mag64) 64 Mg Tablet.er 64 MG PO DAILY (Reported) Multivits-Min/FA/Lycopene/Lut (Centrum Silver Tablet) 1 Each Tablet 1 EACH PO DAILY (Reported) Omeprazole Magnesium (Prilosec Otc) 20 Mg Tablet.dr 20 MG PO DAILY (Reported) Potassium Chloride (Potassium Chloride) 20 Meq Tab.er.prt 20 MEQ PO BID ( Reported) Potassium Chloride ER (Potassium Chloride ER) 8 Meq Tablet 8 MEQ PO Q2D ( Reported) Rosuvastatin Calcium (Crestor) 10 Mg Tablet 5 MG PO DAILY (Reported) Scheduled PRN Acetaminophen (Acetaminophen) 500 Mg Tablet 500 MG PO Q6H PRN PRN For Pain ( Reported) Loperamide (Loperamide) 2 Mg Capsule 4 MG PO Q4H PRN PRN For Diarrhea or Loose Stool (Reported) Ondansetron (Ondansetron) 8 Mg Tablet 8 MG PO TID PRN PRN For Nausea (Reported) Prochlorperazine Maleate (Prochlorperazine) 10 Mg Tablet 10 MG PO QID PRN PRN For Nausea (Reported) Discontinued Medications Amlodipine (Norvasc) 5 Mg Tablet 5 MG PO DAILY (Reported) Chlorthalidone (Chlorthalidone) 25 Mg Tablet 12.5 MG PO DAILY (Reported) Ferrous Sulfate, Dried (Iron) 159 Mg Tablet.er 65 MG PO DAILY (Reported) Magnesium (Mag Delay) 64 Mg Tab 64 MG PO DAILY (Reported) Metformin (Metformin) 500 Mg Tablet 500 MG PO BIDWM (Reported) Omeprazole Magnesium (Prilosec Otc) 20 Mg Tablet.dr 20 MG PO DAILY (Reported) Current Inpatient Medications Current Medications Hydromorphone HCl 0.25 mg Q15MIN PRN IVPUSH Last administered on 01/26/17 15: 57; Admin Dose 0.25 MG; Start 01/26/17 at 14:30; Stop 01/26/17 at 17:29; Status DC Al Hydrox/Mg Hydrox/Simethicone 30 ml Q6H PRN PO; Start 01/26/17 at 16:55 Ondansetron HCl 4 to 8 mg Q4H PRN IVPUSH Last administered on 01/26/17 17:55; Admin Dose 8 MG; Start 01/26/17 at 16:55 Senna 17.2 mg BID PRN PO; Start 01/26/17 at 16:55 Polyethylene Glycol 17 gm DAILY PRN PO; Start 01/26/17 at 16:55 Acetaminophen/ Hydrocodone Bitart 1-2 TABS Q4H PRN PO; Start 01/26/17 at 16:55 Morphine Sulfate 1-2 mg Q4H PRN IV Last administered on 01/27/17 10:51; Admin Dose 1 MG; Start 01/26/17 at 16:55 Piperacillin Sod/ Tazobactam Sod/ Dextrose/Water 50 ml @ 12.5 mls/hr Q8 IV Last administered on 01/27/17 09:03; Admin Dose 12.5 MLS/HR; Start 01/27/17 at 00:30 Heparin Sodium (Porcine) Per Protocol for aPT... PRN PRN IVPUSH Last administered on 01/26/17 22:30; Admin Dose 1,000 UNIT; Start 01/26/17 at 18:05 Alendronate Sodium 70 mg WEEKLY PO; Start 02/02/17 at 08:30 Amitriptyline HCl 50 mg HS PO Last administered on 01/26/17 21:17; Admin Dose 50 MG; Start 01/26/17 at 21:00 Ferrous Sulfate 325 mg DAILY PO Last administered on 01/27/17 09:11; Admin Dose 325 MG; Start 01/27/17 at 08:30 Furosemide 80 mg DAILY PO Last administered on 01/27/17 09:11; Admin Dose 80 MG ; Start 01/27/17 at 08:30 Magnesium Chloride 64 mg DAILY PO Last administered on 01/27/17 09:11; Admin Dose 64 MG; Start 01/27/17 at 08:30 Potassium Chloride 20 meq BID PO Last administered on 01/26/17 21:18; Admin Dose 20 MEQ; Start 01/26/17 at 20:30; Stop 01/27/17 at 08:14; Status DC Prochlorperazine 10 mg QID PRN PO; Start 01/26/17 at 18:20 Rosuvastatin Calcium 5 mg DAILY PO Last administered on 01/27/17 09:11; Admin Dose 5 MG; Start 01/27/17 at 08:30 Cholecalciferol 2,000 unit DAILY PO Last administered on 01/27/17 09:11; Admin Dose 2,000 UNIT; Start 01/27/17 at 08:30 Folic Acid 1 mg HS PO Last administered on 01/26/17 21:18; Admin Dose 1 MG; Start 01/26/17 at 21:00 Multivitamins/ Minerals Therapeutic 1 tablet DAILY PO Last administered on 09:11; Admin Dose 1 TABLET; Start 01/27/17 at 08:30 Pantoprazole 40 mg DAILY PO Last administered on 01/27/17 09:11; Admin Dose 40 MG; Start 01/27/17 at 08:30 Ondansetron HCl 8 mg TID PRN PO; Start 01/26/17 at 18:20 Potassium Chloride 10 meq 10 meq Q2D PO; Start 01/26/17 at 18:20; Status Cancel Sodium Chloride 1,000 ml @ 75 mls/hr [id number] IV Last administered on 01/27/17 09:03; Admin Dose 75 MLS/HR; Start 01/27/17 at 08:15 Insulin Human Regular Regular insulin used gi... Q6 SUBQ Last administered on 01/27/17 09:12; Admin Dose 3 UNIT; Start 01/27/17 at 08:30 Allergies: Coded Allergies: naproxen (Verified Allergy, Severe, WELTS, 01/08/17) Family History Family History Daughter is healthy Social History Hx Alcohol Use: NoHx Substance Use: NoHx Tobacco Use: No Smoking Status: Never Smoker Exam Vital Signs Vital Sign - Last Date Time Temp Pulse Resp B/P Pulse Ox O2 Delivery O2 Flow Rate FiO2 01/27/17 08:28 36.5 60 20 115/57 92 Nasal Cannula 4.00 Intake and Output 01/26/17 01/26/17 01/27/17 Cumulative From/Thru 15:00 23:00 07:00 01/26/17 14:37 - 01/27/17 05:54 Intake Total 50 ml 0 ml 50 ml Output Total 200 ml 200 ml Balance 50 ml -200 ml -150 ml Intake Oral 0 ml 0 ml IV Total 50 ml 50 ml Output Urine Total 200 ml 200 ml Objective General appearance: No apparent distress, frail, pleasant, cooperative HEET: Normocephalic atraumatic, no scleral icterus, tongue midline, mucous membranes moist Neck: supple Cardiovascular: RRR, normal S1 and soft S2, 3/6 late peaking systolic murmur radiating to her carotids b/l, PMI nondisplaced, no JVD,1+ peripheral edema Respiratory: Good aeration, CTAB Abdomen: Soft, nontender, nondistended, + bowel sounds Neuro: Alert, no facial droop, tongue midline, no gross motor deficits Psych: flat affect Skin: no rashes on face and neck. Significant black discoloration of the right forefoot and mild discoloration of the left foot. Lab and Diagnostics Result Diagram: [id number]/27/[id number] X-Rays, CTs and MRIs Echo 05/22/2016: 1) Mild concentric left ventricular hypertrophy with normal size and sysotlic function (EF 55-60%). 2) Normal right ventriuclar size and fnction. Pacemaker lead visualized in the right ventricle. 3) Critically severe calcific aortic steonsis (valve area 0.5cm2, mean gradient 104.6mmHg, severity ratio 0.16). 4) Severe calcific mitral stenosis persent (valve area is 0.95 cm2 by the pressure half time equation, mean transmitral inflow gradient is 14mmHg). 5) Pulmonary hypertension present, estimated systolic pulmonary pressures of 48mmHg. 6) Bilateral pleural effusion present, right worse than left. 7) Compared to the Echo done 10/30/2015, aortic stenosis has progressed from severe to critically severe. Chest x-ray on admission shows pulmonary edema and small bilateral pleural effusions. ECG on admission shows atrial fibrillation with ventricular paced rhythm. Assessment & Plan Assessment 80 yo very medically complex W h/o severe aortic stenosis, severe mitral stenosis, and recurrent intrahepatic cholangiocarcinoma admitted from cardiology clinic yesterday due to dyspnea: # Right foot ulcer, nonhealing: Patient has significant known inflow disease into the right leg. In usual cases, she would be considered for peripheral angiogram with intervention to improve flow to her right foot. Given her very complex medical condition, I am not clear whether that would help her overall condition. There are significant risks involved with this procedure that may help her in the short term. I have asked the patient to speak with palliative care and the peripheral interventionalist to discuss risks and benefits about the procedure before taking an informed decision. We will continue to monitor. # Hyperkalemia: Patient has hyperkalemia today with potassium of 6, which is up from 5.5 yesterday. Suspected etiology is potassium supplements at home in the setting of acute kidney injury. I discussed the cardiac risks associated with hyperkalemia with the patient and her family. Recommendations as below: -Give furosemide 40 mg IV 1 to assess urine output response. # Dyspnea: Likely due to diastolic heart failure from critically aortic stenosis. I spent significant time educating the patient and her about her condition and answered their questions. Recommendations: - Diuresis as above # Critically severe aortic stenosis: evident on echo on 05/22/2016. EF normal. Patient's mean transaortic gradient of 105mmHg is likely mildly higher than expected for valve area of 0.5cm2 due to moderate to severe anemia. By itself, critically aortic stenosis is an indication for aortic valve replacement especially if the patient is having symptoms as is our patient. However, patient is not a candidate for TAVR prior evaluation. Recommendations as below: - Medical management of symptoms as above - Patient and family educated about usual course of critical aortic stenosis # Severe mitral stenosis: probably contributing mildly to her symptoms. Management as above. # Permanent atrial fibrillation with controlled heart rate and recent pacemaker : stable. Pacemaker functioning well. - Okay to hold off anticoagulation (Eliquis) for now as procedures are possible in the next few days # HTN: well controlled. Continue to monitor. # KORY: likely from diuresis. Management as above. # Recurrent cholangiocarcinoma: followed by Dr. Venegas at [facility]. Will defer to Dr. Venegas for further management of the cancer. # Goals of care: patient understands her poor prognosis but is slowly coming to terms with her poor prognosis. She agreed to DNR/DNI as of yesterday's discussion that she had with Dr. May. I agree with palliative care consult to further delineate goals of care and consider hospice care Thank you for the interesting consultation. Cardiology will be available as needed. Pain Evaluation: Adequate Pain Control VTE Prophylaxis: Other (heparin drip, per cardiac protocol. ) Resuscitation Status: DNR/DNI:Do Not Resuscitate/Intubate Herman Bah MD Jan 27, 2017 11:23
[2017-01-27] MEDS: Heparin Protocol Boluses IVPUSH PRN (11:35)
[2017-01-27] MEDS ORDERED: Furosemide 10 mg/mL 4 mL Inj IVPUSH ONE (11:50)
[2017-01-27] MEDS ORDERED: Insulin Human REGular 300 Unit/3 mL Inj IV ONE (12:25)
[2017-01-27] MEDS ORDERED: Levalbuterol 1.25 mg/0.5mL Inhalation Solution NEB STA (12:25)
--- NOTE | 2017-01-27 12:29 | PCM.CONPAL ---
Date of Service Jan 27, 2017 Date of Hospital Admission: Jan 26, 2017 at 16:59 Date of Palliative Consult: Jan 27, 2017 Requesting Provider: Lokesh Turcios DO Reason Palliative Care Consult: Goals of Care Discussion Hospital Unit @time of consult: Medical/Pediatric Care Palliative Care Recommendation 81-year-old female with multiple chronic severe medical illnesses including metastatic cholangiocarcinoma, critical aortic and mitral valve disease, nonhealing right lower extremity ulcers, etc. admitted with increasing pain in the right lower extremity, felt to be secondary to ischemia with plan for potential palliative vascular procedure. Palliative medicine consulted to assist patient and family and determination of goals of care. Summary of palliative recommendations: -Symptom management (Pain/other)- has achieved tolerable pain control with occasional MS IV, but has found that 2 mg dose causes extreme sedation. Will therefore provide MS 1 mg IV Q 1 hr prn. Additional pain medication adjustments pending interventional cardiology decision regarding possible vascular procedure (and possible transition to hospice/comfort care) -DPOA/Advanced Directives/POLST- DO NOT RESUSCITATE/DO NOT INTUBATE, though this decision made only within the last several weeks. Today, in conversation with the patient, her and son-in-law, they made the request for a hospice informational visit. Discussed with them the nature of hospice care and potential benefits to her comfort and sense of well-being. -Family/emotional support- strong family support from her , daughter and son-in-law and others. They remain committed to caring for her at home for as long as possible. Patient Goals: 1. Patient and family want to be told the truth about her illness, even if it is unpleasant. 2. Patient and family would like to be told prognosis when it can be predicted, to better guide treatment decisions. Additional Medical Diagnoses with primary management by Hospitalist team include : #Ischemic right lower extremity #Metastatic liver cancer #Atrial fibrillation #Cardiovascular disease #Congestive heart failure #Valvular heart disease, not amenable to any mechanical intervention #Pleural effusion #Osteoporosis #Hyperkalemia: Problems: End of Life Preferences DO NOT RESUSCITATE/DO NOT INTUBATE Goals of Care Comfort and optimize quality of life remaining Disposition Patient and family prefer home Resuscitation Status Resuscitation Status: DNR/DNI:Do Not Resuscitate/Intubate POLST Updates/Changes Previous POLST?: Yes POLST Last Review Date: Jan 27, 2017 Antibiotics: Determine Use or Limitations Artificially Admin Nutrition: No Artifical Nutrition by Tube POLST Discussed with: Patient POLST Review Outcome: No Change . Advanced Care Planning Address: POLST Pain: Mild Symptom management: Drowsiness/sleepiness, Pain Pt History History of Present Illness Per admission H&P: 81 yo elderly frail very medically complex woman with history of metastatic cholangiocarcinoma, critical aortic stenosis, severe mitral stenosis, diastolic heart failure, and peripheral artery disease admitted with nonhealing right foot ulcer. Patient has been chronically ill for the past few months due to her very severe multiple complex illnesses. However, she has had this wound on her right foot for the past couple of weeks that has gotten worse. She saw Dr. May yesterday in cardiology clinic and was admitted to the hospital for further care of her right foot ulcer. On history, her biggest concerns today are fatigue and shortness of breath along with right foot pain. She feels comfortable resting with oxygen but is not able to much activity. Denies chest pain or syncope. Also denies fevers or chills. Palliative medicine consulted to assist patient and family and determination of goals of care. Prior to visiting, I reviewed her records in the EMR in detail. Spoke with her bedside nurse as well as her hospitalist, and Drs. Bah and Yadira of cardiology. I have also obtained records from her oncologist Dr. Venegas's office at [facility] and these are appended to her paper chart. When I arrived to see the patient, her and son-in-law were at bedside. She was having trouble with her hearing aid and I helped her to replace it and thereafter she was able to participate in our conversation. She felt the pain medication had made her drowsy and a little confused and so wanted to minimize use of it. They were awaiting the visit of the vascular superintendent sales. We spoke at length, reviewing her recent medical history, her personal/social history, and her goals of ongoing care. Her son-in-law raised the possibility of hospice role in her care and we then talked about hospice in some detail. Decision was made to proceed with arranging an informational visit in the coming days which could happen regardless of whatever decisions were made regarding vascular intervention. Her does seem to be somewhat unrealistic in terms of his expectations for her stabilization or improvement. He indicated that he hoped to the vascular procedure would allow her lower extremity ulcerations to heal completely so that she could become ambulatory once again. Her son-in-law seem to have more realistic understanding of her underlying medical conditions and their intractable nature. Review of her records from Dr. Venegas indicates that he does not think she will be a candidate for further chemotherapy. During her last visit with him on January 02 they completed a POLST changing her CODE STATUS to DO NOT RESUSCITATE/ DO NOT INTUBATE/no artificial nutrition, though other limited interventions and hospitalization might still be undertaken. Past Medical History Significant PMH Noted: 1. Atrial fibrillation on anticoagulation for past 2-3 years (no history of cardioversion or ablations) (on Eliquis) 2. Diabetes type 2 3. HTN 4. Dyslipidemia 5. GERD 6. Osteoporosis 7. History of SBO x 4 (first time in 2003 and last one about 5 years ago and conservatively treated at [facility]) -no surgical intervention for any of the SBO 8. Endometrial cancer for which she underwent TOBY/BSO and radiation treatment in 1991 9. Peripheral neuropathy due to diabetes type 2 10. Osteoarthritis 11. Aortic stenosis (critical, not candidate for mechanical intervention) 12. Mitral valve stenosis (critical, not candidate for mechanical intervention) 13. Metastatic cholangiocarcinoma Surgical History 1. TOBY/BSO in 1991 for endometrial cancer 2. Appendectomy 3 Left total knee replacement 4. Colonoscopy was normal about 5 years ago 5. Bilateral cataract surgeries 6. 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 Social Support: Excellent support from family Living Situation: Continues to live at home with her . Occasional caregivers. is interested in additional care at home but says insurance/finances have been challenging. Responsive Patient Symptoms Pain (current): Mild Pain (minimum): Mild Pain (maximium): Severe *Requires 72 Hour Followup Tiredness/Fatigue: Moderate Nausea: None Depression: None Anxiety: None Drowsiness/Sleepiness: Mild Anorexia: Mild Shortness of Breath: Mild (heaviness) Palliative Performance Scale PPS Patient Status: Baseline PPS Ambulation: Mainly Sit/Lie PPS Activity: Unable to do most activity PPS Self-Care: Occasional assistance necessary PPS Intake: Normal or reduced PPS Conscious Level: Full or confusion Performance Scale: 50% POLST at Time of Admission Previous POLST?: Yes (completed 01/02/17 at her oncologist's office) POLST Last Review Date: Jan 27, 2017 Cardiopulmonary Resuscitation: DNR: Do Not Attempt Resuscitation Medical Interventions: Limited Additional Interventions Antibiotics: Determine Use or Limitations Artificially Admin Nutrition: No Artifical Nutrition by Tube POLST Discussed with: Patient POLST Status: No change from last encounter Allergy Allergies Reviewed: Yes Medications Current Medications: Current Medications Hydromorphone HCl 0.25 mg Q15MIN PRN IVPUSH Last administered on 01/26/17 15: 57; Admin Dose 0.25 MG; Start 01/26/17 at 14:30; Stop 01/26/17 at 17:29; Status DC Al Hydrox/Mg Hydrox/Simethicone 30 ml Q6H PRN PO; Start 01/26/17 at 16:55 Ondansetron HCl 4 to 8 mg Q4H PRN IVPUSH Last administered on 01/26/17 17:55; Admin Dose 8 MG; Start 01/26/17 at 16:55 Senna 17.2 mg BID PRN PO; Start 01/26/17 at 16:55 Polyethylene Glycol 17 gm DAILY PRN PO; Start 01/26/17 at 16:55 Acetaminophen/ Hydrocodone Bitart 1-2 TABS Q4H PRN PO; Start 01/26/17 at 16:55 Morphine Sulfate 1-2 mg Q4H PRN IV Last administered on 01/27/17 10:51; Admin Dose 1 MG; Start 01/26/17 at 16:55 Piperacillin Sod/ Tazobactam Sod/ Dextrose/Water 50 ml @ 12.5 mls/hr Q8 IV Last administered on 01/27/17 09:03; Admin Dose 12.5 MLS/HR; Start 01/27/17 at 00:30 Heparin Sodium (Porcine) Per Protocol for aPT... PRN PRN IVPUSH Last administered on 01/27/17 11:35; Admin Dose 1,000 UNIT; Start 01/26/17 at 18:05 Alendronate Sodium 70 mg WEEKLY PO; Start 02/02/17 at 08:30 Amitriptyline HCl 50 mg HS PO Last administered on 01/26/17 21:17; Admin Dose 50 MG; Start 01/26/17 at 21:00 Ferrous Sulfate 325 mg DAILY PO Last administered on 01/27/17 09:11; Admin Dose 325 MG; Start 01/27/17 at 08:30 Furosemide 80 mg DAILY PO Last administered on 01/27/17 09:11; Admin Dose 80 MG ; Start 01/27/17 at 08:30 Magnesium Chloride 64 mg DAILY PO Last administered on 01/27/17 09:11; Admin Dose 64 MG; Start 01/27/17 at 08:30 Potassium Chloride 20 meq BID PO Last administered on 01/26/17 21:18; Admin Dose 20 MEQ; Start 01/26/17 at 20:30; Stop 01/27/17 at 08:14; Status DC Prochlorperazine 10 mg QID PRN PO; Start 01/26/17 at 18:20 Rosuvastatin Calcium 5 mg DAILY PO Last administered on 01/27/17 09:11; Admin Dose 5 MG; Start 01/27/17 at 08:30 Cholecalciferol 2,000 unit DAILY PO Last administered on 01/27/17 09:11; Admin Dose 2,000 UNIT; Start 01/27/17 at 08:30 Folic Acid 1 mg HS PO Last administered on 01/26/17 21:18; Admin Dose 1 MG; Start 01/26/17 at 21:00 Multivitamins/ Minerals Therapeutic 1 tablet DAILY PO Last administered on 09:11; Admin Dose 1 TABLET; Start 01/27/17 at 08:30 Pantoprazole 40 mg DAILY PO Last administered on 01/27/17 09:11; Admin Dose 40 MG; Start 01/27/17 at 08:30 Ondansetron HCl 8 mg TID PRN PO; Start 01/26/17 at 18:20 Potassium Chloride 10 meq 10 meq Q2D PO; Start 01/26/17 at 18:20; Status Cancel Sodium Chloride 1,000 ml @ 75 mls/hr [id number] IV Last administered on 01/27/17 09:03; Admin Dose 75 MLS/HR; Start 01/27/17 at 08:15 Insulin Human Regular Regular insulin used gi... Q6 SUBQ Last administered on 01/27/17 09:12; Admin Dose 3 UNIT; Start 01/27/17 at 08:30 Scheduled Alendronate Sodium (Fosamax) 70 Mg Tablet 70 MG PO WEEKLY FRIDAYS Amitriptyline (Amitriptyline) 25 Mg Tab 50 MG PO HS Amoxicillin (Amoxicillin) 500 Mg Capsule 500 MG PO BID Apixaban (Eliquis) 2.5 Mg Tablet 2.5 MG PO BID Cholecalciferol (Vitamin D3) (Vitamin D3) 2,000 Unit Tablet 2,000 UNIT PO DAILY Ferrous Sulfate (Ferrous Sulfate) 325 Mg Tablet 325 MG PO DAILY Folic Acid (Folic Acid) 0.8 Mg Capsule 0.8 MG PO QPM Furosemide (Furosemide) 80 Mg Tab 80 MG PO QAM Hydrocodone-Acetaminophen 5-325 mg (Hydrocodone-Acetaminophen 5-325 mg) 1 Each Tablet 1 EACH PO Q4hrs Magnesium Chloride (Mag64) 64 Mg Tablet.er 64 MG PO DAILY Multivits-Min/FA/Lycopene/Lut (Centrum Silver Tablet) 1 Each Tablet 1 EACH PO DAILY Omeprazole Magnesium (Prilosec Otc) 20 Mg Tablet.dr 20 MG PO DAILY Potassium Chloride (Potassium Chloride) 20 Meq Tab.er.prt 20 MEQ PO BID Potassium Chloride ER (Potassium Chloride ER) 8 Meq Tablet 8 MEQ PO Q2D Rosuvastatin Calcium (Crestor) 10 Mg Tablet 5 MG PO DAILY Scheduled PRN Acetaminophen (Acetaminophen) 500 Mg Tablet 500 MG PO Q6H PRN PRN For Pain Loperamide (Loperamide) 2 Mg Capsule 4 MG PO Q4H PRN PRN For Diarrhea or Loose Stool Ondansetron (Ondansetron) 8 Mg Tablet 8 MG PO TID PRN PRN For Nausea Prochlorperazine Maleate (Prochlorperazine) 10 Mg Tablet 10 MG PO QID PRN PRN For Nausea Current Treatments Oxygen: Yes IV Fluids: Yes Antibiotics: Yes Telemetry: Yes Objective Findings Exam Vital Sign - Last Date Time Temp Pulse Resp B/P Pulse Ox O2 Delivery O2 Flow Rate FiO2 01/27/17 08:28 36.5 60 20 115/57 92 Nasal Cannula 4.00 Intake and Output 01/26/17 01/26/17 01/27/17 Cumulative From/Thru 14:59 22:59 06:59 01/26/17 14:37 - 01/27/17 05:54 Intake Total 50 ml 0 ml 50 ml Output Total 200 ml 200 ml Balance 50 ml -200 ml -150 ml Intake Oral 0 ml 0 ml IV Total 50 ml 50 ml Output Urine Total 200 ml 200 ml Objective Fatigued and somewhat drowsy. Oriented and responds to questions appropriately. Is restless with generalized discomfort at times. Complains of ache in foot as well as occasional sharp stabs. Vital signs noted. Skin pale, warm and dry. Head and neck exam without acute focal findings. Lungs clear anteriorly, heart sounds regular with a 3/6 late peaking systolic murmur. Abdomen is soft and without tenderness. Extremities with +1 edema. Lab/Diagnostics Lab and Imaging results reviewed in detail in EMR. Time spent Total time 70 minutes; >50% face to face with patient and family, providing counselling regarding plans and recommendations, and in care coordination with her medical teams. Of the above total time, 15 minutes counseling for advanced care planning with the patient and her family members Nghia Lee MD Jan 27, 2017 12:09
[2017-01-27] MEDS ORDERED: Dextrose 10% 250 ML IV ONE (12:35)
--- NOTE | 2017-01-27 13:58 | NUR ---
Palliative care note D/A: Palliative care referral received from Dr. Dunne (ED) on 01/26/17 for assistance with goals of care discussion. Dr. Dunne noted that pt was being admitted and could be seen on 01/27/17. Pt is an 81 yof who is admitted with a history of liver cancer, last chemo two months ago. She was treated by Dr. Venegas at [facility]. She also has DM , atrial fib, HTN, osteoporosis and peripheral vascular disease. She comes in with an ischemic RLE. Pt PCP is Jaime Obrien DO. Pt spouse is Nghia Camargo at [phone]. Her son is Hugo Camargo and he can be reached at [phone]. Dr. Lee has met with pt, her spouse and son in law and family would like hospice info visit. This worker will want to meet with son in law as spouse may be experiencing some cognitive challenges. Have attempted to meet with family, including meg but pt has been busy with care or meg has recently stepped out. Dr. Lee has written order for hospice consult. Msg left for Stefani MOYA [employer]IM INSTALLER. P: Palliative care to follow. Alanna MALAGON, CCM
--- NOTE | 2017-01-27 14:00 | NUR ---
Brooks Placed Brooks catheter per MD orders d/t possible coccyx pressure ulcer, angelia area skin breakdown, and to closely monitor output. 500ml out
[2017-01-27] MEDS ORDERED: Lidocaine Topical 2% 30 mL Jelly ONE (15:35)
[2017-01-27] MEDS ORDERED: Lidocaine 2% 6mL Topical Jelly TOPICAL ONE (15:40)
[2017-01-27] MEDS ORDERED: Belladonna Alk-Opium 60 mg Rectal Suppository RECTAL ONE (15:45)
--- NOTE | 2017-01-27 16:22 | NUR ---
P500 Called security for P500 and none were available at this time. Security will bring one up when one is available. Will pass this along to noc shift
[2017-01-27] MEDS ORDERED: Lactulose 20 Gm/30 mL 30 mL Syrup TUBE ONE (16:25)
[2017-01-27] MEDS: Sodium Chloride LOK Flush 10 mL Syringe IVFLUSH SCH (16:30)
[2017-01-27] MEDS ORDERED: Belladonna Alk-Opium 60 mg Rectal Suppository RECTAL PRN (16:55)
[2017-01-27] MEDS ORDERED: Glucose 40% Oral Gel 15 Gm Tube PO PRN (17:25)
[2017-01-27] MEDS: Insulin LISPRO 300 Unit/3 mL Inj SUBQ SCH ×2 (17:30→22:00)
--- NOTE | 2017-01-27 17:51 | NUR ---
Inpatient Wound Nurse Patient seen for wound eval of coccyx. Stage 2 pressure ulcer identified, 1 cm L x 2 cm W x 0.1 cm D, glossy pink wound bed draining small amount of non-odorous, serosanguineous drainage, edges without undermining, periwound erythemic. Patient complained of pain with turning but no complaints of pain related directly to PU. Bordered, sacral Mepilex dressing applied by primary RN and returned into place after visualization. Patient will be placed on P500 bed when available and turned Q2H. 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 Foot cool and dusky is baseline.
--- NOTE | 2017-01-27 19:08 | NUR ---
oxygenation Titrated pt down to RA from 2L. Sp02 maintained 93% or greater. Pt has very poor circulation and cold hands. When hands are warmed pulse ox reading is in 90s, when cold Sp02 reading is inaccurate (70s)
[2017-01-28] VITALS (21 sets, daily range): BP systolic 97–141; BP diastolic 39–90; PULSE 46–61; RESP 16–18; O2SAT 90–98
[2017-01-28] MEDS: Sodium Chloride LOK Flush 10 mL Syringe IVFLUSH SCH ×3 (00:30→18:41)
[2017-01-28] MEDS: Piperacillin-Tazo 3.375 Gm Inj 3.375 GM in Dextrose 5% Minibag Plus 50 ML IV SCH ×3 (00:54→18:41)
[2017-01-28] MEDS ORDERED: 0.9% Sodium Chloride 1,000 ML IV ONE (06:00)
--- NOTE | 2017-01-28 06:33 | NUR ---
SpO2 SpO2 noted to be mid-high 80's while sleeping on RA. Placed on 2L NC with SpO2 >90%. While awake SpO2 on RA >90%. Denies SOB or respiratory difficulties when awoken from episodes of hypoxia.
[2017-01-28 08:40] LABS: BASOPHILS % (AUTO) 0.1 % (0-3); EOSINOPHILS % (AUTO) 0.1 % (0-5); MONOCYTES % (AUTO) 8.7 % (4-12); Mean Corpuscular Hemoglobin 36.9 pg (27.0-35.0); Mean Corpuscular Volume 111.8 fL (81-100); NEUTROPHILS % (AUTO) 87.1 % (40-74); Platelet Count 118 bil/L (150-400)
[2017-01-28 08:59] LABS: INR 1.18 ratio
[2017-01-28] MEDS: Pantoprazole 40 mg ER24 Tablet PO SCH (09:23)
[2017-01-28] MEDS: Magnesium Chloride SR 64 mg ER24 Tablet PO SCH (09:23)
[2017-01-28] MEDS: Insulin LISPRO 300 Unit/3 mL Inj SUBQ SCH ×4 (09:24→22:00)
[2017-01-28] MEDS ORDERED: Albuterol 2.5 mg/3 mL Inhalation Solution NEB ONE ×2 (10:10→12:55)
[2017-01-28] MEDS ORDERED: Insulin Human REGular 300 Unit/3 mL Inj IV ONE (10:15)
[2017-01-28] MEDS ORDERED: [UNRECOGNIZED DRUG - OTHER] IV ONE (10:15)
[2017-01-28] MEDS ORDERED: Dextrose 10% 250 ML IV ONE (10:25)
--- NOTE | 2017-01-28 10:32 | NUR ---
Palliative care note D/A: Repeated attempts yesterday ( 01/27/17) to meet with meg but he did not reappear during this workers shift. His name and phone number do not appear to be on the board. Case discussed with Dr. Lee who reaffirms that pt/spouse will benefit from having additional family present to address question regarding hospice. Dr. Lee has written order for hospice consult. Pt and spouse reside in [place]. Dr. Lee is able to identify contact names and numbers today. Pt son in law is Daniel and he is to Honey, pt dtr. Contact number is [phone]. Have called and left message. Phone number appears to be cell for Honey. Additionally, here are other family numbers. Isaac Camargo is pt son and can be reached at [phone] Isaac Camargo spouse is Tennille, she is an oncologist in the [place] area and can be reached at [phone]. Pt spouse is Sarthak and he can be reached at [phone]. Will await to hear back from Daniel or Honey and discuss choice. Will also check in room to see if they arrive. Above discussed with HEBERT Ko, lauro who notes that pt is open with [facility]. P: Palliative care to follow. Alanna MALAGON, [facility] Addendum: 01/28/17 at 1257 by [facility] note amendment D/A: Have not received a call back from family. Have left message on pt son's phone. Isaac at [phone]. Dr. Lee aware. P: Palliative care to continue to follow. Alanna MALAGON [facility] Addendum: 01/28/17 at 1418 by [facility] note amendment D/A: Return call from Isaac, pt son. Discussion about hospice, it emerges that he would benefit from further discussion with PC provider as he was not involved in initial discussions. He also notes that use of pt son in law was only a go between for he and pt dtr Honey. (Please note that Honey and her spouse share the phone at [phone] and live in [place].) Isaac discusses with Dr. Lee and is in favor of a hospice informational visit. Describe hospice choice document and son picks [facility] as this is only hospice agency available to his parents, who are [facility] residents. Isaac notes that Sat will not work for his sister for attendance at an informational visit. He would like visit Tuesday, mid . Message left for Sherlyn at [facility] to request Tuesday01/30/17 informational visit. Will call Isaac and HEBERT Ko with time. P: Palliative care to follow. Alanna MALAGON [facility]
--- NOTE | 2017-01-28 10:42 | NUR ---
KASSANDRA signed by
--- NOTE | 2017-01-28 11:34 | PCM.PNMED ---
Subjective Date of Service Jan 28, 2017 Subjective Essentially stable condition. Pt states she slept slightly better, but is hurting all over this morning. Also pain medications are sedating, and she feels out of it. Hopeful surgery today can provide some relief of pain. Exam Vital Signs Vital Sign - Last Date Time Temp Pulse Resp B/P Pulse Ox O2 Delivery O2 Flow Rate FiO2 01/28/17 09:23 36.7 55 17 125/77 92 Nasal Cannula 2.00 Intake and Output 01/27/17 01/27/17 01/28/17 Cumulative From/Thru 15:00 23:00 07:00 01/26/17 14:37 - 01/28/17 06:20 Intake Total 1414 ml 100 ml 1564 ml Output Total 650 ml 200 ml 1050 ml Balance 764 ml -100 ml 514 ml Intake Oral 354 ml 100 ml 454 ml IV Total 1060 ml 1110 ml Output Urine Total 650 ml 200 ml 1050 ml # Bowel Movements 0 0 Exam General: Alert, Oriented X3, Cooperative, Moderate Distress, Patient suffers from severe muscle wasting, cachectic in appearance. ) Eyes: PERRLA, Mouth: Mucous Membranes Moist/[place] Chest & Lungs: Chest Wall Normal (chest wall is significant for [id number] present on right side as well as pacemaker present on left side), Other (there are diminished breath sounds on right side and crackles noted in left lung base) Cardiovascular: Irregular rate with bradycardia (+)Loud systolic mummur palpable Extremities: Right lower extremity is still cyanotic with necrotic toes, ischemic skin ulcers are present. Left lower extremity also cool to touch, pink to erythematous toes, dorsal pedis and pedis pulses are not palpable either side. Very painful to touch. Neurological: Grossly Neurologically Intact IVs and Medications Medications Reviewed: Medications were reviewed in detail Lab and Diagnostics Result Diagram: 01/28/1782401/28/17824 Assessment & Plan This patient is a very unfortunate 81-year-old female with metastatic carcinoma of liver in addition to multiple cardiovascular conditions likely leading to 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 #. Ischemic right lower extremity - Given the necrosis and skin breakdown in addition to questionable evidence of infection we will continue patient on Zosyn at this time which was initially provided in emergency department - Cardiology, Dr. ANDRADE as planned vascular procedure later today to help restore blood flow to lower extremities. - We will continue IV morphine while patient nothing by mouth. May consider titrating her medications to effect, does appear to have continued to impair pt' s mentation to a degree. - Pt kept NPO for procedure planning later today, IVFs continued. #Metastatic liver cancer - This has been determined to be a terminal condition, and as such chemotherapy has ceased as of 2 months prior - If patient's hospitalization improved prolonged may consider reviewing case further with oncologist during this hospitalization - Given patient's multiple comorbidities, and very complex medical conditions in addition to this refractory cancer, palliative care has been consulted to consider best possible interventions during this hospitalization and moving forward on the request of Dr. May. - Hospice has not been consulted in addition, will plan information visit with patient either later today or more likely tomorrow. #Hyperkalemia - Thought to be multifactorial - Certainly necrosis and cellulitis this is contributing in part given continued upward trend in spite of treatment and hydration, distant to cessation of supplementation - Continue to monitor, appreciate nephrology's assistance especially with [place] the acute setting preoperatively. - Stat repeat potassium level is currently pending to ensure stable level prior to surgical procedure. #Atrial fibrillation - She continued on heparin drip while surgery pending. Plan restart on Eloquis following procedure. - We will continue to monitor on telemetry . Pt hemodynamically stable, rate low to normal. #Cardiovascular disease #Congestive heart failure #Valvular heart disease - Continue patient's home medications including statin #Pleural effusion - Supplemental oxygen as needed - Continue Lasix therapy - May consider drainage while anticoagulation therapy is reversed if breathing function becomes more compromised #Osteoporosis - Continue weekly Alendronate in addition to vitamin D supple mentation. #DM - Continue sliding scale insulin Pain Evaluation: Adequate Pain Control VTE Prophylaxis: Other (heparin drip, per cardiac protocol. ) Resuscitation Status: DNR/DNI:Do Not Resuscitate/Intubate Time spent 35 minutes Lokesh Turcios DO Jan 28, 2017 11:33
[2017-01-28] MEDS ORDERED: Heparin 10,000 Unit/1,000 mL NS Premix IV ONE (12:00)
[2017-01-28] MEDS ORDERED: Heparin 1,000 Unit/mL 10 mL Inj ONE (12:00)
--- NOTE | 2017-01-28 12:57 | NUR ---
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 No s/s of distress
[2017-01-28] MEDS ORDERED: Furosemide 10 mg/mL 2 mL Inj ONE (13:18)
[2017-01-28] MEDS ORDERED: fentaNYL-PF 50 mCg/mL 2 mL Inj ONE (13:25)
--- NOTE | 2017-01-28 14:50 | PCM.PALLBR ---
Palliative Care Recommendation 81-year-old female with multiple chronic severe medical illnesses including metastatic cholangiocarcinoma, critical aortic and mitral valve disease (not amenable to any further intervention), nonhealing right lower extremity ulcers, etc. admitted with increasing pain in the right lower extremity, felt to be secondary to ischemia with plan for IR vascular procedure today to try to improve blood flow to right lower extremity. Palliative medicine consulted to assist patient and family and determination of goals of care. Summary of palliative recommendations: -Symptom management (Pain/other)- has achieved tolerable pain control with occasional MS IV, but has recurrent sedation/AMS with medication. Will switch MS to fentanyl IV, 12.5-25 mcg Q 2 hr prn. Continue to follow and adjust. Additional pain medication adjustments as needed/tolerated in the coming days ( and consistent with possible transition to hospice/comfort care) -DPOA/Advanced Directives/POLST- DO NOT RESUSCITATE/DO NOT INTUBATE, though this decision made only within the last several weeks. Hospice information visit arranged for Tuesday, 01/30. Decisions regarding disposition evolving- will need to see how her status trends over the next several days, outcome of her IR procedure, etc. and then determine whether home vs SNF, either with potential of hospice support. Will plan on completing POLST prior to discharge that reflects patient's and family's wishes at that time. -Family/emotional support- strong family support from her and others. They remain committed to caring for her at home for as long as possible, but at the same time are realistic about her potential need for more care than can be provided there. Patient Goals: 1. Patient and family want to be told the truth about her illness, even if it is unpleasant. 2. Patient and family would like to be told prognosis when it can be predicted, to better guide treatment decisions. Additional Medical Diagnoses with primary management by Hospitalist team include : #Ischemic right lower extremity #Metastatic liver cancer #Atrial fibrillation #Cardiovascular disease #Congestive heart failure #Valvular heart disease, not amenable to any mechanical intervention #Pleural effusion #Osteoporosis #Hyperkalemia: Problems: End of Life Preferences DO NOT RESUSCITATE/DO NOT INTUBATE Goals of Care Comfort and optimize quality of life remaining Disposition Patient and family prefer home Resuscitation Status Resuscitation Status: DNR/DNI:Do Not Resuscitate/Intubate POLST Updates/Changes Previous POLST?: Yes POLST Last Review Date: Jan 27, 2017 Antibiotics: Determine Use or Limitations Artificially Admin Nutrition: No Artifical Nutrition by Tube POLST Discussed with: Patient POLST Review Outcome: No Change . Pain: Moderate Symptom management: Drowsiness/sleepiness, Agitation, Pain, Delirium Total time 50 minutes; >50% face to face with patient and family, providing counselling regarding plans and recommendations, and in care coordination with her medical teams. Over the above total time, 15 minutes counseling for advanced care planning with the patient's son and Palliative Brief Note Date of Service Jan 28, 2017 . Returned to reevaluate patient. Prior to visiting, reviewed her updated records in the EMR in detail and spoke with her bedside nurse. Also spoke with her hospitalist. On my initial visit, I spoke with the patient and her . Spoke later by phone at length with her son Hugo. She remains restless and complains of diffuse, vague discomfort. Also continues to complain of right lower extremity pain especially. Remains reluctant to use medications because they sedate/confuse her. Was NPO at time of my initial visit in anticipation of her vascular procedure around midday. She could not focus enough to ask any specific questions and her had no new concerns. When I spoke later with Hugo, I reviewed her overall status and prognosis with him, reviewed current medications and treatments, answered questions he had and then we talked about eventual disposition options (which would be dictated, to a large degree, depending on how her status evolves over the next several days). On brief exam, her vital signs were noted. Skin warm and dry. Color is sallow. Head and neck exam without acute findings, lungs clear anterolaterally , heart sounds regular with prominent systolic murmur as before. Abdomen soft and without peritoneal signs or severe tenderness. Lab and imaging studies reviewed. Nghia Lee MD Jan 28, 2017 14:50
--- NOTE | 2017-01-28 15:24 | PCM.CHPMED ---
Subjective Date of Service: Jan 28, 2017 Primary Physician: Admitting Physician: Lokesh Turcios DO Primary Care Physician: Jaime Obrien DO Attending Physician: Lokesh Turcios DO Chief Complaint: Chief Complaint: Right leg pain History of Present Illness: This is an 81-year-old female past medical history significant for metastatic cholangiocarcinoma, VHD, atrial fibrillation, diabetes mellitus, PVD, hypertension who came in for palliative vascular procedure. Unfortunately, patient has failed chemotherapy for metastatic cholangiocarcinoma. The family has decided to transition to comfort care. Yet, she was recently found to have PVD and ischemic limbs. She was admitted for palliative vascular procedure at least to alleviate the pain. Renal was consulted to manage hyperkalemia. Medical management for hyperkalemia was provided. Her potassium came down from 6.2 to 5.2. However, this morning, a repeat potassium was 5.7. During my visit, she complains of right foot pain. She denies fever, chills, chest pain or shortness of breath. PMH 1. Atrial fibrillation on anticoagulation for past 2-3 years (no history of cardioversion or ablations) (on Eliquis) 2. Diabetes type 2 3. HTN 4. Dyslipidemia 5. GERD 6. Osteoporosis 7. History of SBO x 4 (first time in 2003 and last one about 5 years ago and conservatively treated at [facility]) -no surgical intervention for any of the SBO 8. Endometrial cancer for which she underwent TOBY/BSO and radiation treatment in 1991 9. Peripheral neuropathy due to diabetes type 2 10. Osteoarthritis 11. Aortic stenosis (critical, not candidate for mechanical intervention) 12. Mitral valve stenosis (critical, not candidate for mechanical intervention) 13. Metastatic cholangiocarcinoma Surgical History 1. TOBY/BSO in 1991 for endometrial cancer 2. Appendectomy 3 Left total knee replacement 4. Colonoscopy was normal about 5 years ago 5. Bilateral cataract surgeries 6. Pacemaker Family History Patient can recall no significant family history of either parent Social History Hx Alcohol Use: No Hx Substance Use: No Hx Tobacco Use: No Smoking Status: Never Smoker Review of Systems: 10 point review of systems is conducted entirely negative except for pertinent positives and negatives included above history of present illness Allergies Coded Allergies: naproxen (Verified Allergy, Severe, WELTS, 01/08/17) [facility] Bedside Blood Glucose: 166 Allergies: Coded Allergies: naproxen (Verified Allergy, Severe, WELTS, 01/08/17) Social History Hx Alcohol Use: NoHx Substance Use: NoHx Tobacco Use: No Smoking Status: Never Smoker Exam Vital Signs Vital Sign - Last Date Time Temp Pulse Resp B/P Pulse Ox O2 Delivery O2 Flow Rate FiO2 01/28/17 14:59 55 16 97/77 92 Nasal Cannula 5.00 01/28/17 09:23 36.7 Intake and Output 01/27/17 01/27/17 01/28/17 Cumulative From/Thru 15:00 23:00 07:00 01/26/17 14:37 - 01/28/17 06:20 Intake Total 1414 ml 100 ml 1564 ml Output Total 650 ml 200 ml 1050 ml Balance 764 ml -100 ml 514 ml Intake Oral 354 ml 100 ml 454 ml IV Total 1060 ml 1110 ml Output Urine Total 650 ml 200 ml 1050 ml # Bowel Movements 0 0 General: Cooperative, Other (frail) Head: Skull Deformity, Tenderness Eyes: PERRLA, Other (mild pallor) Mouth: Mucous Membranes Dry Neck: Supple, No Thyromegaly Chest & Lungs: Chest Wall Normal, Clear to auscultation & percussion Cardiovascular: Regular Rate/Rhythm, Normal S1, Normal S2, Murmur (systolic) Abdomen: Non-tender, Non-distended Musculoskeletal: Other (cold to touch on both legs, dusky red color on right leg, severe pain to touch) Extremities: No cyanosis/clubbing/edma bilat Lab and Diagnostics Result Diagram: 01/28/17 0825 01/28/17 1135 Assessment & Plan Assessment 1. Hyperkalemia - due to ongoing ischemic limb - constipation 2. Ischemic right lower extremity - angioplasty pending. 3. Metastatic cholangiocarcinoma. 4. Atrial fibrillation 5. VHD 6. CHF Plan: Will give another round of D50, regular insulin and albuterol. Repeat K level in 2 hours. Add kayexalate. Give lactuose PRN for constipation. Thank you for allowing me to participate in the care of your patient. Problems: Pain Evaluation: Adequate Pain Control VTE Prophylaxis: Other (heparin drip, per cardiac protocol. ) Resuscitation Status: DNR/DNI:Do Not Resuscitate/Intubate Belle Pereira MD Jan 28, 2017 15:24
--- NOTE | 2017-01-28 15:49 | DI96 ---
[address] [address] PERIPHERAL CATHETERIZATION/INTERVENTION REPORT PATIENT: MULUGETA MARIO : 1935 MR#: [id number] ADMIT: 01/26/2017 JOB ID: [id number] DATE OF PROCEDURE: 01/28/2017 PATIENT PROFILE: The patient is an 80-year-old lady with history of critical aortic stenosis and cholangiocarcinoma. She presented with critical limb ischemia of the right lower extremity. PROCEDURE: 1. Conscious sedation for 1 hour and 23 minutes. 2. Vascular access from the right groin under ultrasound guidance. 3. Selective ipsilateral right external iliac angiogram. 4. Balloon angioplasty to the right external iliac artery. COMPLICATION: None. METHOD: Conscious sedation was achieved with IV Versed and IV fentanyl. Vascular access was obtained from the right groin under 1% lidocaine local anesthesia using an 18-gauge needle. The arterial wall is heavily calcified. The feeling when the needle punctured the arterial wall was quite crunchy. There was difficulty advancing the 0.035 wire into the arterial lumen due to heavy calcification. The micropuncture wire was then used to direct into the right external iliac artery under fluoroscopy. The 18-gauge needle was then replaced with a micro sheath. Heparin 4,000 units were given. A [place] Advantage wire was directed into the abdominal aorta under fluoroscopy. Selective ipsilateral right external iliac angiogram was performed in the AP view by manual injection. The right external iliac artery lesion was then dilated with a 5 x 40 mm balloon and a 6 x 20 mm balloon. The 6 mm balloon was inflated up to 10 atmospheres for 30 seconds. Final angiogram was obtained. A 4-[place] slip catheter was then advanced to the abdominal aorta and pressure gradient was obtained on the pullback. Final angiogram was obtained. The femoral sheath will be removed in 1-1/2 hours later with manual compression. The patient tolerated the procedure well. She was transferred to [facility] in stable condition. TOTAL CONTRAST USED: 30 cc. FLUOROSCOPY TIME: 2.57 minutes. RESULTS: 1. The common iliac artery, external iliac artery, internal iliac artery and common femoral artery are heavily calcified. 2. Tandem eccentric 60 and 70% stenosis of the right external iliac artery. 3. No significant disease of the right common iliac artery. 4. The right common femoral artery has intraluminal haziness with approximately 50% stenosis with heavy calcification. 5. Successful balloon angioplasty to the moderate to severe stenosis of the right external iliac artery. There is no residual pressure gradient across the lesion. NILSOND
--- NOTE | 2017-01-28 16:25 | NUR ---
Social Work: Brief Note / Multidisciplinary Rounds Data: pt is an 81 y/o female admitted for Ischemic RLE. SEED TRUCKER attempted to meet with pt today, pt off of floor for director of cardiac cath lab. Hospice SEED TRUCKER working on setting up hospice info visit. SEED TRUCKER will continue to follow. HEBERT Yip
--- NOTE | 2017-01-28 19:18 | NUR ---
Back on unit Pt arrived back from [facility] at 1830 with family. VS : BP 141/75 P paced 61 RR 18. BG 140. Pt denied any pain, was given 12.5mcg fentanyl in [facility] before arrival. Pt place on IV fluids and tele. Right groin site covered in bio occlusive dressing CDI, soft to palpitation and well approximated. Right foot is warm but was unable to assess pulses or capillary refill d/t pt refusal severity of ischemia. HOB 15 degrees.
[2017-01-28] MEDS: fentaNYL-PF 50 mCg/mL 2 mL Inj IVPUSH PRN ×2 (19:41→22:30)
[2017-01-29] VITALS (7 sets, daily range): BP systolic 109–124; BP diastolic 53–68; PULSE 55–83; RESP 10–18; O2SAT 91–93
[2017-01-29] MEDS: Sodium Chloride LOK Flush 10 mL Syringe IVFLUSH SCH ×3 (00:30→16:41)
[2017-01-29] MEDS: Piperacillin-Tazo 3.375 Gm Inj 3.375 GM in Dextrose 5% Minibag Plus 50 ML IV SCH ×3 (00:40→16:40)
[2017-01-29 05:31] LABS: Mean Corpuscular Hemoglobin 35.9 pg (27.0-35.0); Mean Corpuscular Volume 110.8 fL (81-100)
--- NOTE | 2017-01-29 06:28 | NUR ---
Anticoagulation/Groin Site Attempted to get clarification regarding anticoagulation post procedure with electronic warfare officer motion picture director and night hospitalist. Per MD patient to remain off heparin gtt at this time and will evaluate in the morning. Right groin site soft and tender to touch but otherwise non painful. No active s/s bleeding noted.
[2017-01-29] MEDS: Pantoprazole 40 mg ER24 Tablet PO SCH (08:06)
[2017-01-29] MEDS: Insulin LISPRO 300 Unit/3 mL Inj SUBQ SCH ×4 (08:07→22:00)
[2017-01-29] MEDS: Magnesium Chloride SR 64 mg ER24 Tablet PO SCH (08:30)
[2017-01-29] MEDS: fentaNYL-PF 50 mCg/mL 2 mL Inj IVPUSH PRN ×3 (10:04→13:07)
[2017-01-29] MEDS ORDERED: oxyCODONE 20 mg/mL Oral Concentration PO PRN (10:50)
[2017-01-29] MEDS: 0.9% Sodium Chloride 250 ML IV SCH (11:27)
[2017-01-29] MEDS ORDERED: Sodium Chloride LOK Flush 10 mL Syringe IVFLUSH PRN (11:30)
[2017-01-29] MEDS ORDERED: HepLOK Flush 100 unit/mL 5 mL Inj IVFLUSH PRN (11:30)
--- NOTE | 2017-01-29 14:44 | PCM.PNMED ---
Subjective Date of Service Jan 29, 2017 Subjective Patient notes in especially diffuse pain is slightly improved. She is still having significant pain of lower extremities right in particular, which is not much improved since one day prior and after procedure. She also notes feeling kind of groggy and out of it, maybe a side effect of the fentanyl pain medications has been receiving. No other acute complaints at this time however , remains hopeful procedure well even healing of her right foot at least decrease the pain. Exam Vital Signs Vital Sign - Last Date Time Temp Pulse Resp B/P Pulse Ox O2 Delivery O2 Flow Rate FiO2 01/29/17 14:23 36.6 56 18 115/55 91 Room Air 01/29/17 05:15 2.00 Intake and Output 01/28/17 01/28/17 01/29/17 Cumulative From/Thru 15:00 23:00 07:00 01/26/17 14:37 - 01/29/17 06:29 Intake Total 750 ml 603 ml 2917 ml Output Total 400 ml 500 ml 1950 ml Balance 350 ml 103 ml 967 ml Intake Oral 0 ml 0 ml 454 ml IV Total 750 ml 603 ml 2463 ml Output Urine Total 400 ml 500 ml 1950 ml # Bowel Movements 0 Exam General: Alert though sedate, Oriented, Cooperative, Moderate Distress Eyes: PERRLA, Mouth: Mucous Membranes Moist/[place] Chest & Lungs: Chest Wall Normal (chest wall is significant for [id number] present on right side as well as pacemaker present on left side), Other (there are diminished breath sounds on right side and crackles noted in left lung base) Cardiovascular: Irregular rate with bradycardia (+)Loud systolic mummur palpable Extremities: Right lower extremity is still cyanotic with necrotic toes, ischemic skin ulcers are present. Left lower extremity also cool to touch, pink to erythematous toes, dorsal pedis and pedis pulses are not palpable either side. Very painful to touch. No bleeding noted at arterial access site Neurological: Grossly Neurologically Intact though sedate and moderately lethargic IVs and Medications Medications Reviewed: Medications were reviewed in detail Lab and Diagnostics Result Diagram: 01/29/1751401/29/17514 Assessment & Plan This patient is a very unfortunate 81-year-old female with metastatic carcinoma of liver in addition to multiple cardiovascular conditions likely leading to 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 #. Ischemic right lower extremity - Given the necrosis and skin breakdown in addition to questionable evidence of infection we will continue patient on Zosyn at this time which was initially provided in emergency department - Cardiology, Dr. ANDRADE as planned vascular procedure later today to help restore blood flow to lower extremities. - Palliative care team is making recommendations for continued pain MGMT. It is challenging as pt opiate naive and becomes sedated with even moderate doses, Currently RX'd Fentanyl with good control of pain but sedation. #Altered mentation - Likely mutlifactorial - Consider transition to lower potency pain medication if pt remains altered through afternoon. #Metastatic liver cancer - This has been determined to be a terminal condition, and as such chemotherapy has ceased as of 2 months prior - If patient's hospitalization improved prolonged may consider reviewing case further with oncologist during this hospitalization - Given patient's multiple comorbidities, and very complex medical conditions in addition to this refractory cancer, palliative care has been consulted to consider best possible interventions during this hospitalization and moving forward on the request of Dr. May. - Hospice has been consulted in addition, will plan information visit with patient either later today or more likely tomorrow. #Hyperkalemia - Thought to be multifactorial - Certainly necrosis and cellulitis this is contributing in part given continued upward trend in spite of treatment and hydration, distant to cessation of supplementation - Continue to monitor,improving today to with normal limits. #Atrial fibrillation - Heparin drip now DC'd. PO however NPO given poor swallowing response with sedation - Will start prophylactic dose of Heparin while NPO, anticipate restarting Eloquis once stable. - We will continue to monitor on telemetry . Pt hemodynamically stable, rate low to normal. #Cardiovascular disease #Congestive heart failure #Valvular heart disease - Continue patient's home medications including statin #Pleural effusion - Supplemental oxygen as needed - Holding home Lasix however given poor renal functioning. - May consider drainage while anticoagulation therapy is reversed if breathing function becomes more compromised #Osteoporosis - Continue weekly Alendronate in addition to vitamin D supple mentation. #DM - Continue sliding scale insulin Pain Evaluation: Adequate Pain Control VTE Prophylaxis: Sub-Q Heparin (Unfractionated), Other (Elqouis will be restarted once tolerating PO medications. ) Resuscitation Status: DNR/DNI:Do Not Resuscitate/Intubate Time spent 35 minutes Lokesh Turcios DO Jan 29, 2017 14:44
[2017-01-29] MEDS ORDERED: Heparin 5,000 Unit/mL Inj SUBQ SCH (16:30)
--- NOTE | 2017-01-29 19:19 | NUR ---
Pain Plan/Restlessness Fentanyl 12.5mcg admin this a.m. w/ little effect, another 12.5mg admin 45 minutes later. Patient experienced mild confusion after admin. 1300 admin 25mcg dose d/t c/o pain/grimacing, patient experienced relief but slight confusion. Md cancelled fentanyl order & ordered MS 1-2mg, 1mg admin @ 1600 w/ a "fair" result, patient able to sleep but awoke w/ slight restlessness/confusion. Md asked to order Lorazepam for restlessness, order just now processed, passed on to NOC RN that Lorazepam was ordered. Granddaughter at the bedside, requesting that IV pain meds be admin q4h via port even if patient is sleeping to keep up on the pain, passed on request to NOC RN. Palliative consult scheduled for tomorrow.
[2017-01-30] VITALS (9 sets, daily range): BP systolic 101–130; BP diastolic 50–71; PULSE 54–57; RESP 8–10; O2SAT 90–97
[2017-01-30] MEDS: Sodium Chloride LOK Flush 10 mL Syringe IVFLUSH SCH ×3 (00:32→16:30)
[2017-01-30] MEDS: Piperacillin-Tazo 3.375 Gm Inj 3.375 GM in Dextrose 5% Minibag Plus 50 ML IV SCH ×3 (00:32→16:59)
--- NOTE | 2017-01-30 06:06 | NUR ---
pain / Ativan / NOC 1929: family and patient requesting Ativan, as discussed w/ day MD. page to MD to request order. Order put in by MD, as well as an increase to Morphine dosage (1-4mg) 1st dose ativan effective, restlessness much improved. Morphine given thru the night, prior to turning/repositioning. Frequent oral care to keep mucosa moist. RR holding steady at 8/min. Spo2 93% 2lpm via NC. Extremities cool to touch. Tele Vpaced, afib 57. overnight at bedside. Thanked us for our care of his .
[2017-01-30] MEDS: Pantoprazole 40 mg ER24 Tablet PO SCH (08:30)
[2017-01-30] MEDS: Sodium Chloride LOK Flush 10 mL Syringe IVFLUSH PRN ×2 (10:20→14:10)
[2017-01-30] MEDS: Insulin LISPRO 300 Unit/3 mL Inj SUBQ SCH ×4 (10:37→22:00)
[2017-01-30] MEDS: 0.9% Sodium Chloride 250 ML IV SCH ×2 (11:27→14:08)
--- NOTE | 2017-01-30 15:29 | NUR ---
Unable to complete swallow evaluation due to somnulence. Patient working with pallative to determine goals of care. FABRIC AND ACCESSORIES ESTIMATOR to recheck tomorrow.
--- NOTE | 2017-01-30 16:10 | NUR ---
Social Work: Attempted initial assessment / Multidisciplinary Rounds Data: Pt is on day 4 of hospitalization. EMR reviewed. Pt discussed in rounds. states pt not ready for d/c at this time. Hospice of the met with pt and family members, they did not sign consents at this time. DATA COMMUNICATIONS TECHNICIAN attempted to follow up with pt and family, no family present and pt sleeping sounding. DATA COMMUNICATIONS TECHNICIAN called pt's , left voice mail requesting a phone call back regarding d/c planning and initial assessment. DATA COMMUNICATIONS TECHNICIAN will complete initial assessment at a later time and continue to follow. Assessment: Pt nearing end of life. Plan: Pt and family did not sign hospice consents today, plan evolving. Pt likely to return home, possibly with hospice. DATA COMMUNICATIONS TECHNICIAN will continue to follow. HEBERT Yip
[2017-01-30] MEDS: Heparin 5,000 Unit/mL Inj SUBQ SCH (16:56)
--- NOTE | 2017-01-30 17:27 | PCM.PNMED ---
Subjective Date of Service Jan 30, 2017 Subjective Patient remains sedate compared with her baseline, and is spending much of today sleeping. Nonetheless her pain appears much improved control, in part due to increased opiate therapy which is also likely related to her increased level of sedation. Family remains at bedside. Exam Vital Signs Vital Sign - Last Date Time Temp Pulse Resp B/P Pulse Ox O2 Delivery O2 Flow Rate FiO2 01/30/17 17:16 36.3 54 8 101/50 97 Nasal Cannula 3.00 Intake and Output 01/29/17 01/29/17 01/30/17 Cumulative From/Thru 15:00 23:00 07:00 01/26/17 14:37 - 01/30/17 06:47 Intake Total 750 ml 133 ml 3800 ml Output Total 400 ml 150 ml 2500 ml Balance 350 ml -17 ml 1300 ml Intake Oral 300 ml 0 ml 754 ml IV Total 450 ml 133 ml 3046 ml Output Urine Total 400 ml 150 ml 2500 ml # Bowel Movements 0 0 Exam General: Alert though sedate, but in no acute distress. Breathing slowly but not labored. Eyes: PERRLA, Mouth: Mucous Membranes Moist/[place] Chest & Lungs: Chest Wall Normal (chest wall is significant for [id number] present on right side as well as pacemaker present on left side), there are diminished breath sounds on right side and crackles noted in left lung base) Cardiovascular: Irregular rate with bradycardia (+)Loud systolic mummur palpable Extremities: Right lower extremity is still cyanotic with necrotic toes, ischemic skin ulcers are present. Sternum is warmer to touch than day prior. Left lower extremity also warmer to touch, pink to erythematous toes, dorsal pedis and pedis pulses are not palpable either side. Very painful to touch. 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 #. Ischemic right lower extremity - Given the necrosis and skin breakdown in addition to questionable evidence of infection we will continue patient on Zosyn at this time which was initially provided in emergency department - Cardiology, Dr. ANDRADE conducted successful revascularization of right foot correcting stenosis in the iliofemoral region - Perfusion appears to be improving the necrosis remains present - I would recommend consultation of patient's marble supervisor, Dr. Hale, who I reached out to today but was unable to talk with directly, for further discussion regarding long-term prognosis following revascularization. Family is very concerned about the prospect of her be able to walk on foot again, I am not sure if this is a possibility and also not sure should patient's medical condition improved if a partial amputation was necessary to ensure patient more fully recover. - Lactic acid remains normal and potassium levels are also stable, which supports adequate perfusion and no further cell lysis may be contributing to elevated potassium earlier in hospitalization. - Palliative care team is making recommendations for continued pain MGMT. It is challenging as pt opiate naive and becomes sedated with even moderate doses, Currently RX'd Morphine with good control of pain but sedation, perhaps slightly less edema and fentanyl prescribed previously. #Altered mentation - Likely mutlifactorial - Consider transition to lower potency pain medication if pain improves #Metastatic liver cancer - This has been determined to be a terminal condition, and as such chemotherapy has ceased as of 2 months prior - If patient's hospitalization improved prolonged may consider reviewing case further with oncologist during this hospitalization - Given patient's multiple comorbidities, and very complex medical conditions in addition to this refractory cancer, palliative care has been consulted to consider best possible interventions during this hospitalization and moving forward on the request of Dr. May. - Hospice has been consulted in addition, will plan information visit with patient either later today or more likely tomorrow. #Hyperkalemia #Renal failure acute on chronic #Contrast-induced nephropathy - Thought to be multifactorial - Certainly necrosis and cellulitis this is contributing in part given continued upward trend in spite of treatment and hydration, distant to cessation of supplementation - Continue to monitor, upward trending renal functions likely correlated with recent contrast use - Based was discussed with , who agrees with continue to hold Lasix therapy but believes it is reasonable to not initiate intravenous fluids at this time given comorbid heart disease. - If oral intake remains poor may consider initiation of fluids in the a.m.. #Atrial fibrillation - Heparin drip now DC'd. PO however NPO given poor swallowing response with sedation - Will start prophylactic dose of Heparin while NPO, anticipate restarting Eloquis once stable. - We will continue to monitor on telemetry . Pt hemodynamically stable, rate low to normal. #Cardiovascular disease #Congestive heart failure #Valvular heart disease - Continue patient's home medications including statin - Doing critical aortic stenosis and mitral stenosis volumes status is challenging but patient certainly at risk for volume overload - As such we have deferred aggressive hydration even in the setting of contrast- induced nephropathy. - Would recommend reaching out resident athletic trainer Dr. May in a.m. for further recommendations on hydration status and management. #Pleural effusion - Supplemental oxygen as needed - Holding home Lasix however given poor renal functioning. - May consider drainage if breathing function declines but this is currently stable. #Osteoporosis - Continue weekly Alendronate in addition to vitamin D supple mentation. #DM - Continue sliding scale insulin Disposition: remains pending multiple conditions which are yet unclear prognosis. Discharge on home hospice as a possibility however there may be consideration of some active treatment and discharge depending on patient's recovery. Pain Evaluation: Adequate Pain Control VTE Prophylaxis: Sub-Q Heparin (Unfractionated), Other (Elqouis will be restarted once tolerating PO medications. ) Resuscitation Status: DNR/DNI:Do Not Resuscitate/Intubate Time spent 45 minutes Lokesh Turcios DO Jan 30, 2017 17:27
--- NOTE | 2017-01-30 19:18 | PCM.ADCARE ---
Advance Care Planning Note Purpose of Encounter: Discuss treatment objectives and goals of care. Parties in Attendance: Patient, , Son, [id number] Decisional Capacity: is currently acting as decision maker give pt's depressed mental status Subjective: Pt's pain is now controlled, blood flow to ischemic extremity restored. Heart function poor, renal failure with contrast nephropathy complicating condition. Pt appears comfortable at least with pain medications, but these are sedating. See progress not from same day for further details. Objective: See progress note on same date for details of objective findings. Pt comfortable. Rt foot warmer but still necrosed. Goals of Care Determinations: Will continue to consider some interventions which would afford benefit to discomfort, offer longer life, and not cause excessive pain. Some discomforts such as blood draws , possible Bipap still acceptable if pt has reasonable chance of some recovery to quality life. Plan: Advance diet IF tolerated Continue prophylactic heparin while NPO , will restart heparin when able. Blood draws related to drip causing excessive discomfort due to frequency Consult podiatry for further advice on MGMT of foot with restored blood flow Discuss further with cardiology to aid in determination of prognosis in setting of end stage heart disease CODE STATUS: DNR/DNI Time Spent Adv.Care Plannin hour Adv. Care Plan Documenation: This document in addition to daily progress note. POLST completed previously. Lokesh Turcios DO Jan 30, 2017 19:18
[2017-01-31] VITALS (8 sets, daily range): BP systolic 92–127; BP diastolic 54–71; PULSE 55–56; RESP 9–20; O2SAT 92–100
[2017-01-31] MEDS: Sodium Chloride LOK Flush 10 mL Syringe IVFLUSH SCH ×4 (00:30→23:47)
[2017-01-31] MEDS: Heparin 5,000 Unit/mL Inj SUBQ SCH ×4 (01:15→23:32)
[2017-01-31] MEDS: Piperacillin-Tazo 3.375 Gm Inj 3.375 GM in Dextrose 5% Minibag Plus 50 ML IV SCH ×4 (01:15→23:46)
--- NOTE | 2017-01-31 02:01 | NUR ---
Pain, Mentation: Minimal communication early in shift, pt did belch and quietly stated "excuse me". After 0100, pt had eyes slightly open, sitting next to pt. Pt was restless and expressed "yes" when asked if in pain; medicated as ordered. When RN was talking to pt, she stated with mumbled speech she couldn't hear RN. Spouse stated hearing aides were out. RN was joking with pt about oral care and placement of lip balm, this made pt get a big grin on her face. Staff assisting with turning and keeping sheets off foot.
[2017-01-31 05:28] LABS: BASOPHILS % (AUTO) 0 % (0-3); EOSINOPHILS % (AUTO) 0 % (0-5); MONOCYTES % (AUTO) 5.7 % (4-12); Mean Corpuscular Volume 112.1 fL (81-100); NEUTROPHILS % (AUTO) 92.2 % (40-74); Platelet Count 104 bil/L (150-400)
[2017-01-31] MEDS: Insulin LISPRO 300 Unit/3 mL Inj SUBQ SCH ×4 (08:00→23:20)
[2017-01-31] MEDS: Pantoprazole 40 mg ER24 Tablet PO SCH (08:30)
[2017-01-31] MEDS: 0.9% Sodium Chloride 250 ML IV SCH (11:27)
--- NOTE | 2017-01-31 14:41 | PCM.PNMED ---
Subjective Date of Service Jan 31, 2017 Subjective pt is minimally responsive to voice, but responded to toxic stimuli, not following commands spontaneously opened her eyes rarely, explained that AMS is multifactorial no pulses found on RLE on doppler on board, Exam Vital Signs Vital Sign - Last Date Time Temp Pulse Resp B/P Pulse Ox O2 Delivery O2 Flow Rate FiO2 01/31/17 06:18 36.9 55 9 119/63 93 Nasal Cannula 3.00 Intake and Output 01/30/17 01/30/17 01/31/17 Cumulative From/Thru 15:00 23:00 07:00 01/26/17 14:37 - 01/31/17 06:54 Intake Total 0 ml 265 ml 4065 ml Output Total 150 ml 75 ml 2725 ml Balance -150 ml 190 ml 1340 ml Intake Oral 0 ml 0 ml 754 ml IV Total 265 ml 3311 ml Output Urine Total 150 ml 75 ml 2725 ml # Bowel Movements 0 0 0 Exam Patient mainly closed her eyes, does not follow any commands, responsive to noxious stimuli PERRLA NAD, comfortably laying down on the bed no JVD, MMM, no LAD RRR, nl s1, s2 no mrg CTAB, no w,c S,ND,NT,normoactive BS+ erythematous bilaterally, below ankle erythematous, necrotic toes, IVs and Medications Medications Reviewed: Medications were reviewed in detail Lab and Diagnostics Result Diagram: 01/31/17 0505 01/31/17 0505 Assessment & Plan This patient is a very unfortunate 81-year-old female with metastatic carcinoma of liver in addition to multiple cardiovascular conditions likely leading to 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 Given multiple comorbidities, worsening mental status, patient seemed very appropriate for hospice, discussed with palliative care service , will try to convince to set the realistic goal. we will wait for podiatry to comment on necrotic toes, it was stressed with hospital in that patient cannot tolerate surgery such as amputation and won't be beneficial. #. Ischemic right lower extremity - Given the necrosis and skin breakdown in addition to questionable evidence of infection we will continue patient on Zosyn at this time which was initially provided in emergency department - Cardiology, Dr. ANDRADE conducted successful revascularization of right foot correcting stenosis in the iliofemoral region - Perfusion appears to be improving the necrosis remains present - I would recommend consultation of patient's pipe line walker, Dr. Hale, who I reached out to today but was unable to talk with directly, for further discussion regarding long-term prognosis following revascularization. Family is very concerned about the prospect of her be able to walk on foot again, I am not sure if this is a possibility and also not sure should patient's medical condition improved if a partial amputation was necessary to ensure patient more fully recover. - Lactic acid remains normal and potassium levels are also stable, which supports adequate perfusion and no further cell lysis may be contributing to elevated potassium earlier in hospitalization. - Palliative care team is making recommendations for continued pain MGMT. It is challenging as pt opiate naive and becomes sedated with even moderate doses, Currently RX'd Morphine with good control of pain but sedation, perhaps slightly less edema and fentanyl prescribed previously. #Altered mentation - Likely mutlifactorial - Consider transition to lower potency pain medication if pain improves #Metastatic liver cancer - This has been determined to be a terminal condition, and as such chemotherapy has ceased as of 2 months prior - If patient's hospitalization improved prolonged may consider reviewing case further with oncologist during this hospitalization - Given patient's multiple comorbidities, and very complex medical conditions in addition to this refractory cancer, palliative care has been consulted to consider best possible interventions during this hospitalization and moving forward on the request of Dr. May. - Hospice has been consulted in addition, will plan information visit with patient either later today or more likely tomorrow. #Hyperkalemia #Renal failure acute on chronic #Contrast-induced nephropathy - Thought to be multifactorial - Certainly necrosis and cellulitis this is contributing in part given continued upward trend in spite of treatment and hydration, distant to cessation of supplementation - Continue to monitor, upward trending renal functions likely correlated with recent contrast use - Based was discussed with , who agrees with continue to hold Lasix therapy but believes it is reasonable to not initiate intravenous fluids at this time given comorbid heart disease. - If oral intake remains poor may consider initiation of fluids in the a.m.. #Atrial fibrillation - Heparin drip now DC'd. PO however NPO given poor swallowing response with sedation - Will start prophylactic dose of Heparin while NPO, anticipate restarting Eloquis once stable. - We will continue to monitor on telemetry . Pt hemodynamically stable, rate low to normal. #Cardiovascular disease #Congestive heart failure #Valvular heart disease - Continue patient's home medications including statin - Doing critical aortic stenosis and mitral stenosis volumes status is challenging but patient certainly at risk for volume overload - As such we have deferred aggressive hydration even in the setting of contrast- induced nephropathy. - Would recommend reaching out k9 handler Dr. May in a.m. for further recommendations on hydration status and management. #Pleural effusion - Supplemental oxygen as needed - Holding home Lasix however given poor renal functioning. - May consider drainage if breathing function declines but this is currently stable. #Osteoporosis - Continue weekly Alendronate in addition to vitamin D supple mentation. #DM - Continue sliding scale insulin VTE Prophylaxis: Sub-Q Heparin (Unfractionated), Other (Elqouis will be restarted once tolerating PO medications. ) Resuscitation Status: DNR/DNI:Do Not Resuscitate/Intubate Time spent 35min Becca Hicks MD Jan 31, 2017 08:47
--- NOTE | 2017-01-31 15:05 | NUR ---
Inpatient Wound Nurse Patient seen for follow up of Stage 2 coccygeal pressure ulcer. Wound appears improved from last week. Today it measures 1 cm L x 2 cm W x 0.1 cm D, beefy red wound bed, edges well adhered though slightly macerated. Periwound erythema halo diminished and blanchable. Drainage is minor, serosanguinous, and non-odorous. Nursing staff have repositioned patient frequently and changed bordered Mepilex dressing over coccyx PRN. Patient is on P500. Patient's R foot, 2nd toe is beginning to detach at most distal interphalangeal joint where skin is naturally creased. Skin is split and weeping. Entire foot is ice cold with specific purple margins noted and advancing toward instep. All toes are purple, 2nd toe more than others. Dorsal wound has increased. No pulses palpated.
--- NOTE | 2017-01-31 15:27 | PCM.PALLBR ---
Palliative Care Recommendation 81-year-old female with multiple chronic severe medical illnesses including metastatic cholangiocarcinoma, critical aortic and mitral valve disease (not amenable to any further intervention), nonhealing right lower extremity ulcers, etc. admitted with increasing pain in the right lower extremity, felt to be secondary to ischemia with angioplasty of the right iliac vessel on 01/28. Unfortunately, she continues to slowly deteriorate. Palliative medicine consulted to assist patient and family and determination of goals of care. Summary of palliative recommendations: -Symptom management (Pain/other)- has achieved tolerable pain control with occasional MS IV, but has recurrent sedation/AMS with medication. Attempted IV fentanyl without successful weekend. Had wanted to try oral oxycodone liquid but now NPO. Consider trial of oral morphine concentrate SL if she remains otherwise NPO. Symptom management to some degree dependent on family/'s decisions regarding ongoing aggressive care versus transition to purely comfort care, which are themselves somewhat dependent on podiatry, cardiology, medicine input. -DPOA/Advanced Directives/POLST- DO NOT RESUSCITATE/DO NOT INTUBATE, though this decision made only within the last several weeks. Hospice information visit on Tuesday, 01/30, but at this time patient's remains reluctant to enroll, out of concerns for still wanting aggressive medical treatment which hospice might preclude. Decisions regarding disposition evolving- will need to see how her status trends over the next several days, and then determine whether home vs SNF, either with potential of hospice support. Will plan on completing POLST prior to discharge that reflects patient's and family's wishes at that time. -Family/emotional support- strong family support from her and others. They remain committed to caring for her at home for as long as possible, but at the same time are realistic about her potential need for more care than can be provided there. Patient Goals: 1. Patient and family want to be told the truth about her illness, even if it is unpleasant. 2. Patient and family would like to be told prognosis when it can be predicted, to better guide treatment decisions. Additional Medical Diagnoses with primary management by Hospitalist team include : #Ischemic right lower extremity #Metastatic liver cancer #Atrial fibrillation #Cardiovascular disease #Congestive heart failure #Valvular heart disease, not amenable to any mechanical intervention #Pleural effusion #Osteoporosis #Hyperkalemia: Problems: End of Life Preferences DO NOT RESUSCITATE/DO NOT INTUBATE Goals of Care Comfort and optimize quality of life remaining Disposition Patient and family prefer home Resuscitation Status Resuscitation Status: DNR/DNI:Do Not Resuscitate/Intubate POLST Updates/Changes Previous POLST?: Yes POLST Last Review Date: Jan 27, 2017 Antibiotics: Determine Use or Limitations Artificially Admin Nutrition: No Artifical Nutrition by Tube POLST Discussed with: Patient POLST Review Outcome: No Change . Pain: Moderate Symptom management: Drowsiness/sleepiness, Dyspnea, Pain Total time 95 minutes; >50% face to face with patient and family, providing counselling regarding plans and recommendations, and in care coordination with her medical teams. Of this above total time, 60 minutes counseling for advanced care planning with the patient's , daughter and [id number] Palliative Brief Note Date of Service Jan 31, 2017 . Returned to reevaluate patient. Prior to visiting, reviewed her updated records in the EMR in detail, spoke with her hospitalist and her nurse. I also called and spoke at length with her [id number]-by-ohv, Dr. Sera Sheikh and then met later with the patient's daughter Honey and Nghia (accompanied by Dr. Darby and EDGE GRINDER Mathieu). On my arrival, patient was resting in bed, quite drowsy. Would respond to questions only with 1 or 2 words. Did appear to be restless and uncomfortable at times, but frequently refuses pain medication. Family notes that she has always had a very high tolerance for pain. She denied any specific dyspnea, chest or abdominal pain, nausea when I was visiting her, but at other times did not complain of some shortness of breath and chest heaviness. Continues to have significant right lower extremity pain post her vascular procedure. Dr. Luna of podiatry was to see her at midday to evaluate the right foot and offer recommendations. Over the course of my lengthy conversations with her and other family members, we reviewed her status over the last several days detail, discussed current/ongoing major medical issues, discussed the challenges involved in treating her discomfort (the common problem of achieving adequate relief without excess sedation) as well as reviewing evolution of her prognosis and treatment plans. Family members appear to have a very realistic understanding of her status and are focused first and foremost on her comfort. Her is having a more difficult time accepting her deterioration and a transition to comfort care. We talked about potential options for home care with hospice support versus SNF placement- they are carrying out inquiries today with her insurance carriers trying to determine what additional help might be available at home. On exam today, she appeared restless. Vital signs noted. Skin is warm, sallow and dry. Head and neck exam without acute changes. Lungs clear anteriorly, heart sounds regular, abdomen soft and nontender. Extremities increasingly puffy from disuse. Right lower extremity skin breakdown stable. Reevaluated by speech therapy today and made NPO. Discussed this with family and at least for now they are willing to go along with that and not sign a waiver allowing more liberal intake Laboratory studies reviewed in detail. Nghia Lee MD Jan 31, 2017 15:27
--- NOTE | 2017-01-31 15:28 | NUR ---
Palliative care note FC D/A: Case discussed with Sherlyn betina am who notes that she has openings for pt potential on or Tues ( 02/01/17 or 02/02/17) Case discussed with Dr. Lee in detail later in day, who noted that pt is getting podiatry consult and spouse not yet ready for hospice. Msg left for Sherlyn to indicate that per Dr. Lee, pt will not be ready to dc to [facility] on at all, [facility] is a possibility. Met with pt spouse, her dtr Honey , Dr.s. Lee and Mehnaz. Discussed her condition and expected prognosis at length. Provided support to spouse and indicated that PC will continue to support and check in with him after more information is received post podiatry consult. P: Palliative care to follow. Alanna MALAGON, [facility]
--- NOTE | 2017-01-31 15:39 | NUR ---
Social Work: Attempted initial assessment / Multidisciplinary Rounds Data & assessment: EMR Reviewed. Pt is on day 5 of hospitalization for ichemic per H&P. SW attempted to complete assessment for pt. No family at bedside, SW placed a call to and left message. Palliative care following, family would like to await result of podiatry consult prior to making a decision about Hospice. SW to follow up again tomorrow. Plan:SW to follow up and complete assessment tomorrow. Palliative care following, family would like to await result of podiatry consult prior to making a decision about Hospice. SW to follow up again tomorrow. HEBERT Abdi
--- NOTE | 2017-01-31 19:30 | NUR ---
Pain/Resp Patient drowsy this a.m. unable to follow commands, but more awake this afternoon visiting with family on occassion. Lungs diminished bilat, patient appears to have increased sob with patient and activity, O2 @ 3 L nc sat 89-99%. Morphine x 2 given for right foot pain and resp distress. Right foot purple from mid foot to toes, cool to touch. Blister on right foot intact. Unable to doppler dorsalis, but able to doppler posterior tibial at bedside and attempted to doppler pulses as well. Patient npo except ice chips for comfort. cattle alley worker in this afternoon and drsg changed on buttock.
--- NOTE | 2017-01-31 23:41 | PROG NOTE ---
[address] [address] PROGRESS NOTE PATIENT: MULUGETA MARIO : 1935 MR#: [id number] ADMIT: 01/26/2017 JOB ID: [id number] DATE: 01/31/2017 SUBJECTIVE: The patient is seen at bedside resting in reasonable comfort with her son and daughter present. I was consulted by hospitalist team to evaluate her and see what might be done to improve her comfort or assist in treatment for the critical limb ischemia on the right side. I had [facility] and had acquired imaging and consultation with Dr. Lugo. Decision was made at that time not to intervene. Patient did have progression of her vascular disease. Later on, she was seen by her rn pediatric, Dr. May, who suggested admission for pain control, and on Tuesday she had vascular intervention which did successfully improve circulation to the limb. The patient has been recovering from surgery over the weekend. Her family understand that she is in dire condition suffering from multiple system disorder, not to mention gangrenous changes in the right foot. 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 For details on previous visits, please see my wound care notes. OBJECTIVE: Vitals: BP is 117/71, pulse 55, respirations 9, temperature 36.9 p.o. Pulse oximetry shows 99% on 3 L nasal cannula. Right foot is examined and found to show ischemic necrosis of the great toe, second toe, plantar aspect of the third and fourth toes, the majority of the 5th toe. There is also further necrosis on the dorsum of the foot. There is some drying of the distal gangrenous tissues, whereas there is serous bulla formation at the proximal margin of the dorsal wound. There are areas of previous serous bullae noted prior. The patient also is fairly edematous with +2 pitting edema to both lower extremities, also observed in right greater than left hand. The right foot, however, is warm and while pulses are nonpalpable, hand-held Doppler reveals strong mono to biphasic pulse with infrequent lack of capture with her internal pacer. The foot is generally ruborous with brisk CFT up to the margin of demarcation. There are no signs of infection at this point, but certainly as the demarcation continues to progress we should be protecting her either with dressings or with antibiotics to prevent that. However, the patient does have high-level sensitivity even during my exam today with her somnolent, she is restless even with light touch associated with checking her CFT. Patient's family states that this has been the case throughout the day. She had period of greater consciousness evidently earlier this morning, but has been sleeping throughout the day and receiving IV morphine in very low doses, but having fairly profound benefit. ASSESSMENT: 1. Critical limb ischemia postprocedure with apparent mandaen of inflow. 2. Ischemic digits of the right foot. 3. Multiple system disorder including valvular heart disease, coronary artery disease, heart failure, and diabetes. PLAN: After evaluating the patient at bedside this afternoon, I spoke with the family for quite some time about things we can do for her foot. Majority of my recommendations are essentially comfort measures at this point. I anticipate she may transfer to hospice at some point. She does have a pacemaker, and in my discussion with Dr. May that was one concern that the pacer may need some management. Unfortunately, that would not be possible under hospice designation, however, the patient's overall health appears to be deteriorating quickly. After discussing with the family, I also was able to talk with Dr. Lee as well. Consensus is the patient is in fairly rapid decline so any major intervention would be ill-advised. I would, however, make myself available to provide any recommendations for keeping the foot from becoming infected or any worsening of symptoms there. I also offered comfort measure of durable popliteal block. I was able to return later this evening to provide block at bedside. The right the lateral popliteal fossa was prepped with Betadine, followed by introduction of 1% lidocaine with epinephrine, a total of 8 cc, followed by 8 more cc of 0.5% bupivacaine just distal to the branching femoral nerve. The patient had near immediate relief. She smiled and opened her eyes, nodding but speaking very little. She did recognize me, however, and said "thank you." Her daughter was present for that procedure as her had to go on home. Greatest difficulty is making it clear to her the condition is not reversible and that things are moving fairly quickly. I will continue to visit the patient during her hospital stay to provide whatever care I can, even if that is simply palliative or comfort care. My thanks to the hospitalist team for taking such good care of this very nice lady.
[2017-02-01 01:05] VITALS: BP 106/39; PULSE 55; RESP 10; O2SAT 99
[2017-02-01 05:54] VITALS: BP 84/34; PULSE 56; RESP 9; O2SAT 99
--- NOTE | 2017-02-01 06:16 | NUR ---
Comfort Has appeared comfortable all shift without need for prn pain rx. Nerve block administered by MD this shift and has appeared effective. Has had episodes of SOB when awakening from sleep while coughing but they resolve once able to clear airway. Daughter at bedside all shift. Repositioned and care per families wishes as to not disturb patient. Family requesting no FSBG checks at bedtime. Significant time spent with daughter discussing goals of care and providing education regarding end of life care and effects that different medications have on cognition to determine appropriate care at this time. Daughter wanting to wait for patients to be present before sedating medications administered if possible but also does not want patient to suffer. Once arrives will need to discuss further goals of care and provide further education as needed.
[2017-02-01] MEDS ORDERED: Haloperidol 5 mg/mL Inj IVPUSH PRN (08:25)
[2017-02-01] MEDS ORDERED: Morphine 100 mg/100 mL NS 100 MG in IV Premix 1 EACH IV SCH (08:25)
[2017-02-01] MEDS ORDERED: Artificial Tears 15 mL Ophthalmic Solution AFFECT_EYE PRN (08:25)
[2017-02-01] MEDS ORDERED: Glycopyrrolate 0.2 MG/ML 1mL Inj IVPUSH PRN (08:25)
--- NOTE | 2017-02-01 08:29 | NUR ---
Palliative care note D/A: Pt seen today by Dr. Lee. He notes that pt was painful last night and asked family to be allowed to go. Dtr. reached decision to allow for full comfort and communicated this to her father. Pt will be comfort care here and DR. Lee expects that she is is imminent. Phone call to Sherlyn at [facility] to inform. Phone call to lauro Carreno to inform. P: Palliative care to follow and assist. Alanna MALAGON, CCM
--- NOTE | 2017-02-01 08:31 | NUR ---
Social Work: Continued Discharge Planning D: EMR reviewed. Pt is on day 6 of hospitalization for ischemic RLE per H&P. SW received T/C from from Palliative confirming that pt will go on comfort care here at the hospital. Palliative updated [facility]. T/C to Itzel at [facility] [phone] confirming that pt will remain at hospital on Comfort Care and will not return home with [facility]. A: Pt for whom Comfort Care has been deemed medically necessary. P: Pt to remain at hospital with Comfort Care - SW updated [facility] and Palliative updated [facility]. SW will continue to follow. HEBERT Rodriguez
--- NOTE | 2017-02-01 09:39 | NUR ---
Inpatient Wound Nurse Conversation completed with patient's primary RN. Patient is now comfort care and nursing staff will reposition per comfort PRN and keep pressure ulcer covered. No active wound care needed, CWON will remain available if needed.
--- NOTE | 2017-02-01 10:43 | NUR ---
Social Work: Initial Assessment/Multi-Disciplinary Rounds D: EMR reviewed. Please see initial assessment for more information. Pt is a 81 y/o female admitted for ischemic RLE per H&P. Pt's insurance is Medicare and [employer]. PCP is Jaime Obrien. NOK is spouse, Nghia Camargo, who can be contacted for discharge planning. Per rounds, pt will remain at hospital on Comfort Care. Pt to open with [facility] if pt discharges home. Palliative updated [facility] on pt's status. SW updated [facility] on pt's status. A: Pt to remain at hospital on Comfort Care. If pt does return home, pt to open with [facility]. P: Pt to remain at hospital on Comfort Care. If pt does return home, pt to open with [facility]. SW will continue to follow for needs. HEBERT Rodriguez Addendum: 02/01/17 at 1050 by GENEVA BILL Amended: Links added.
[2017-02-01] MEDS: 0.9% Sodium Chloride 250 ML IV SCH (11:27)
--- NOTE | 2017-02-01 12:56 | NUR ---
Comfort Care/MS gtt Patient turned comfort care this a.m., uncomfortable upon starting shift, unable to verbalize, attempt at sitting forward, anxious & grimacing in discomfort, MS 2mg & Lorazepam 1mg admin w/ a good effect, MS gtt started shortly thereafter @ 1mg/ml/hr. Patient currently resting comfortably, turned slightly at noon, tolerated well, no signs of discomfort, very little response. RR 9-12. Oral care being given, will occasionally clamp down on swab. Coffee cart outside of room, family at the bedside, tearful, stated they do not need visit from shredding machine tender they have lots of family support but if she arrives, it's OK. Family encouraged to bring non-medicinal forms of comfort such as favorite scents/lotion or music.
--- NOTE | 2017-02-01 14:03 | PCM.PALLBR ---
Palliative Care Recommendation 81-year-old female with multiple chronic severe medical illnesses including metastatic cholangiocarcinoma, critical aortic and mitral valve disease (not amenable to any further intervention), nonhealing right lower extremity ulcers, etc. admitted with increasing pain in the right lower extremity, felt to be secondary to ischemia with angioplasty of the right iliac vessel on 01/28. Unfortunately, she continued to slowly deteriorate. Palliative medicine consulted to assist patient and family and determination of goals of care. Over the course of the evening and early this morning, she has continued to deteriorate and is now on comfort care. Summary of palliative recommendations: -Symptom management (Pain/other)- comfort care protocol with morphine drip, 1 mg /h initially and adjustments of this and other medications as needed for her comfort -DPOA/Advanced Directives/POLST- DO NOT RESUSCITATE/DO NOT INTUBATE/ comfort care It is expected that she will here in the hospital in the next 24-48 hours -Family/emotional support- strong family support from her and others. Family members gathering for their goodbyes Patient Goals: 1. Patient and family want to be told the truth about her illness, even if it is unpleasant. 2. Patient and family would like to be told prognosis when it can be predicted, to better guide treatment decisions. Additional Medical Diagnoses with primary management by Hospitalist team include : #Ischemic right lower extremity #Metastatic liver cancer #Atrial fibrillation #Cardiovascular disease #Congestive heart failure #Valvular heart disease, not amenable to any mechanical intervention #Pleural effusion #Osteoporosis #Hyperkalemia: Problems: End of Life Preferences DO NOT RESUSCITATE/DO NOT INTUBATE/comfort care Goals of Care Comfort Resuscitation Status Resuscitation Status: DNR/DNI:Do Not Resuscitate/Intubate POLST Updates/Changes Previous POLST?: Yes POLST Last Review Date: Jan 27, 2017 Antibiotics: Determine Use or Limitations Artificially Admin Nutrition: No Artifical Nutrition by Tube POLST Discussed with: Patient POLST Review Outcome: Form Voided . Advanced Care Planning Address: Comfort care Pain: None Symptom management: Drowsiness/sleepiness Total time 95 minutes; >50% face to face with patient and family, providing counselling regarding plans and recommendations, and in care coordination with her medical teams, spread across multiple visits through the day All of the above time spent counseling for advanced care planning with the patient and her family Palliative Brief Note Date of Service Feb 01, 2017 . Returned to reevaluate patient. Prior to visiting, reviewed her updated records in the EMR in detail and spoke with her bedside nurse. I also spoke with her hospitalist. Last evening I had spoken with Drs. Luna and Yadira , and today I also spoke by phone with her daughter in law, Dr. Sheikh. I spoke at length with her daughter Honey and her Nghia at bedside on multiple occasions through the day. Patient has continued to deteriorate. She had some transient relief from her popliteal block but then threw the rest of the evening was increasingly restless and uncomfortable. Family tells me that she actually expressed that she recognizes she is dying, that she did not wish further care, that she wanted release and release, etc. Family ultimately made the decision to transition to comfort based care which was confirmed this morning once again. At the time of my visits, she appeared increasingly comfortable through the day. Respiratory rate is decreasing and breathing is more shallow. Skin sallow , warm and dry. Remainder of exam stable. After talking and reconfirming family wishes with him, remaining formal orders for comfort care initiated. I also spoke with discharge planning- it is expected that she will here in the hospital the next 24-48 hours. Nghia Lee MD Feb 01, 2017 14:03
[2017-02-01] MEDS: Atropine 1% 5 mL Ophthalmic Solution PO PRN ×2 (15:27→20:33)
[2017-02-01 15:30] VITALS: RESP 12
--- NOTE | 2017-02-01 16:19 | PCM.PNMED ---
Subjective Date of Service Feb 01, 2017 Subjective pt was transitioned to comfort care per , morphine gtt started pt was not responsive, families were at the bedside. Exam Vital Signs Vital Sign - Last Date Time Temp Pulse Resp B/P Pulse Ox O2 Delivery O2 Flow Rate FiO2 02/01/17 15:31 Supplement Oxygen 02/01/17 15:30 12 02/01/17 05:54 36.7 56 84/34 99 3.50 Intake and Output 01/31/17 01/31/17 02/01/17 Cumulative From/Thru 15:00 23:00 07:00 01/26/17 14:37 - 02/01/17 05:54 Intake Total 148 ml 0 ml 4213 ml Output Total 75 ml 0 ml 2800 ml Balance 73 ml 0 ml 1413 ml Intake Oral 0 ml 0 ml 754 ml IV Total 148 ml 0 ml 3459 ml Output Urine Total 75 ml 0 ml 2800 ml # Bowel Movements 0 0 Exam Patient mainly closed her eyes, does not follow any commands, responsive to noxious stimuli PERRLA NAD, comfortably laying down on the bed no JVD, MMM, no LAD RRR, nl s1, s2 no mrg decreased BS bilaterally S,ND,NT,normoactive BS+ erythematous bilaterally, below ankle erythematous, necrotic toes, IVs and Medications Medications Reviewed: Medications were reviewed in detail Lab and Diagnostics Result Diagram: 01/31/17 0505 01/31/17 0505 Assessment & Plan This patient is a very unfortunate 81-year-old female with metastatic carcinoma of liver in addition to multiple cardiovascular conditions likely leading to 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 Given multiple comorbidities, worsening mental status, rapid deterioration, comfort care started per Palliative care service, pt looked comfortable on morphine gtt. pt is likely to pass in house 1-2days. #. Ischemic right lower extremity - Given the necrosis and skin breakdown in addition to questionable evidence of infection we will continue patient on Zosyn at this time which was initially provided in emergency department - Cardiology, Dr. ANDRADE conducted successful revascularization of right foot correcting stenosis in the iliofemoral region - Perfusion appears to be improving the necrosis remains present - I would recommend consultation of patient's contact center consultant, Dr. Hale, who I reached out to today but was unable to talk with directly, for further discussion regarding long-term prognosis following revascularization. Family is very concerned about the prospect of her be able to walk on foot again, I am not sure if this is a possibility and also not sure should patient's medical condition improved if a partial amputation was necessary to ensure patient more fully recover. - Lactic acid remains normal and potassium levels are also stable, which supports adequate perfusion and no further cell lysis may be contributing to elevated potassium earlier in hospitalization. - Palliative care team is making recommendations for continued pain MGMT. It is challenging as pt opiate naive and becomes sedated with even moderate doses, Currently RX'd Morphine with good control of pain but sedation, perhaps slightly less edema and fentanyl prescribed previously. #Altered mentation - Likely mutlifactorial - Consider transition to lower potency pain medication if pain improves #Metastatic liver cancer - This has been determined to be a terminal condition, and as such chemotherapy has ceased as of 2 months prior - If patient's hospitalization improved prolonged may consider reviewing case further with oncologist during this hospitalization - Given patient's multiple comorbidities, and very complex medical conditions in addition to this refractory cancer, palliative care has been consulted to consider best possible interventions during this hospitalization and moving forward on the request of Dr. May. - Hospice has been consulted in addition, will plan information visit with patient either later today or more likely tomorrow. #Hyperkalemia #Renal failure acute on chronic #Contrast-induced nephropathy - Thought to be multifactorial - Certainly necrosis and cellulitis this is contributing in part given continued upward trend in spite of treatment and hydration, distant to cessation of supplementation - Continue to monitor, upward trending renal functions likely correlated with recent contrast use - Based was discussed with , who agrees with continue to hold Lasix therapy but believes it is reasonable to not initiate intravenous fluids at this time given comorbid heart disease. - If oral intake remains poor may consider initiation of fluids in the a.m.. #Atrial fibrillation - Heparin drip now DC'd. PO however NPO given poor swallowing response with sedation - Will start prophylactic dose of Heparin while NPO, anticipate restarting Eloquis once stable. - We will continue to monitor on telemetry . Pt hemodynamically stable, rate low to normal. #Cardiovascular disease #Congestive heart failure #Valvular heart disease - Continue patient's home medications including statin - Doing critical aortic stenosis and mitral stenosis volumes status is challenging but patient certainly at risk for volume overload - As such we have deferred aggressive hydration even in the setting of contrast- induced nephropathy. - Would recommend reaching out glassware verifier Dr. May in a.m. for further recommendations on hydration status and management. #Pleural effusion - Supplemental oxygen as needed - Holding home Lasix however given poor renal functioning. - May consider drainage if breathing function declines but this is currently stable. #Osteoporosis - Continue weekly Alendronate in addition to vitamin D supple mentation. #DM - Continue sliding scale insulin VTE Prophylaxis: Sub-Q Heparin (Unfractionated), Other (Elqouis will be restarted once tolerating PO medications. ) Resuscitation Status: DNR/DNI:Do Not Resuscitate/Intubate Time spent 35min Becca Hicks MD Feb 01, 2017 16:17
--- NOTE | 2017-02-01 17:15 | NUR ---
spiritual care: comfort care routine/follow up lengthy conversational visit wiht pt's Nghia and nicola. Pt appeared comfortable, well attended by nursing. family reminisced, grieving, coping. Pt's traits and values such as caring, quiet leadership, compassionate relating identified and celebrated in conversation.
--- NOTE | 2017-02-01 19:08 | NUR ---
MS Gtt/Current Status Morphine gtt increased to 2mg/ml/hr @ 1615 d/t grimacing & slight movement, rate increase has had a good effect. Agonal breathing, RR 6-9. Suction at the beside, unable to suction phlegm, scopolamine patch behind ear, atropine gtts applied x 1, minimal secretions, HOB @ 30 degrees. Providing oral care. Family at the bedside.
[2017-02-01 19:30] VITALS: RESP 4
[2017-02-02 01:00] VITALS: RESP 6
[2017-02-02 04:51] VITALS: PULSE 70; RESP 6
--- NOTE | 2017-02-02 05:18 | NUR ---
Comfort Care: Family at bedside through the night. Morphine drip with no rate change, pt resting quietly, no moaning, family stated pt's situation was "peaceful". Family requests no position changes. Respiratory rate 4-6 with irregular agonal breathing at time. Breathing pattern changed slightly around 0100, family asked RN if time for passing was going to coming soon. Explained we could decrease the oxygen, as it was on 4L. Pt's family was alright with decreasing to 2L for some comfort. Pt was on Handout on end of lift offered to family, stated already having a copy. Breathing pattern again changed at this time, agonal gasping type breathing. Secretions seem increased, requested medication be sent from pharmacy and will administer. Addendum: 02/02/17 at 0636 by HENRRY PEREYRA RN Medication not administered, pt has .
--- NOTE | 2017-02-02 06:36 | NUR ---
: Pt at 0550 this morning with family at bedside. All belongings, including glasses will be going home with Sarthak. Family unsure of home at this time, have been informed to call lace tearing supervisor when they make that decision. Family encouraged to spend as much time in the room with pt.
--- NOTE | 2017-02-02 10:50 | NUR ---
Social Work-discharge: SW updated by Bedside RN in morning rounds that pt this morning. No SW needs. HEBERT Abdi
--- NOTE | 2017-02-02 19:32 | PCM.DC.MED ---
Discharge Summary Date of Service Feb 02, 2017 Dates of Hospitalization Date of Hospital Admission Jan 26, 2017 at 16:59 Date of Discharge: Feb 02, 2017 Providers: Admitting Physician: Lokesh Turcios DO Primary Care Physician: Jaime Obrien DO Attending Physician: Paige Mayo MD Diagnosis at Time of Discharge Diagnosis at Time of Discharge Metastatic biliary ductal carcinoma, right ischemic leg Brief History This is an 81-year-old female past medical history significant for metastatic cholangiocarcinoma, VHD, atrial fibrillation, diabetes mellitus, PVD, hypertension who came in for palliative vascular procedure. Unfortunately, patient has failed chemotherapy for metastatic cholangiocarcinoma. The family has decided to transition to comfort care. Yet, she was recently found to have PVD and ischemic limbs. She was admitted for palliative vascular procedure at least to alleviate the pain. Renal was consulted to manage hyperkalemia. Medical management for hyperkalemia was provided. Her potassium came down from 6.2 to 5.2. However, this morning, a repeat potassium was 5.7. During my visit, she complains of right foot pain. She denies fever, chills, chest pain or shortness of breath. PMH 1. Atrial fibrillation on anticoagulation for past 2-3 years (no history of cardioversion or ablations) (on Eliquis) 2. Diabetes type 2 3. HTN 4. Dyslipidemia 5. GERD 6. Osteoporosis 7. History of SBO x 4 (first time in 2003 and last one about 5 years ago and conservatively treated at [facility]) -no surgical intervention for any of the SBO 8. Endometrial cancer for which she underwent TOBY/BSO and radiation treatment in 1991 9. Peripheral neuropathy due to diabetes type 2 10. Osteoarthritis 11. Aortic stenosis (critical, not candidate for mechanical intervention) 12. Mitral valve stenosis (critical, not candidate for mechanical intervention) 13. Metastatic cholangiocarcinoma Surgical History 1. TOBY/BSO in 1991 for endometrial cancer 2. Appendectomy 3 Left total knee replacement 4. Colonoscopy was normal about 5 years ago 5. Bilateral cataract surgeries 6. Pacemaker Family History Patient can recall no significant family history of either parent Social History Hx Alcohol Use: No Hx Substance Use: No Hx Tobacco Use: No Smoking Status: Never Smoker Review of Systems: 10 point review of systems is conducted entirely negative except for pertinent positives and negatives included above history of present illness Allergies Coded Allergies: naproxen (Verified Allergy, Severe, WELTS, 01/08/17) Hospital Course This patient is a very unfortunate 81-year-old female with metastatic carcinoma of liver in addition to multiple cardiovascular conditions likely leading to 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 Given multiple comorbidities, worsening mental status, rapid deterioration, comfort care started per Palliative care service, pt looked comfortable on morphine gtt. pt is likely to pass in house 1-2days. #. Ischemic right lower extremity - Given the necrosis and skin breakdown in addition to questionable evidence of infection we will continue patient on Zosyn at this time which was initially provided in emergency department - Cardiology, Dr. ANDRADE conducted successful revascularization of right foot correcting stenosis in the iliofemoral region - Perfusion appears to be improving the necrosis remains present - I would recommend consultation of patient's clinical lab scientist, Dr. Hale, who I reached out to today but was unable to talk with directly, for further discussion regarding long-term prognosis following revascularization. Family is very concerned about the prospect of her be able to walk on foot again, I am not sure if this is a possibility and also not sure should patient's medical condition improved if a partial amputation was necessary to ensure patient more fully recover. - Lactic acid remains normal and potassium levels are also stable, which supports adequate perfusion and no further cell lysis may be contributing to elevated potassium earlier in hospitalization. - Palliative care team is making recommendations for continued pain MGMT. It is challenging as pt opiate naive and becomes sedated with even moderate doses, Currently RX'd Morphine with good control of pain but sedation, perhaps slightly less edema and fentanyl prescribed previously. #Altered mentation - Likely mutlifactorial - Consider transition to lower potency pain medication if pain improves #Metastatic liver cancer - This has been determined to be a terminal condition, and as such chemotherapy has ceased as of 2 months prior - If patient's hospitalization improved prolonged may consider reviewing case further with oncologist during this hospitalization - Given patient's multiple comorbidities, and very complex medical conditions in addition to this refractory cancer, palliative care has been consulted to consider best possible interventions during this hospitalization and moving forward on the request of Dr. May. - Hospice has been consulted in addition, will plan information visit with patient either later today or more likely tomorrow. #Hyperkalemia #Renal failure acute on chronic #Contrast-induced nephropathy - Thought to be multifactorial - Certainly necrosis and cellulitis this is contributing in part given continued upward trend in spite of treatment and hydration, distant to cessation of supplementation - Continue to monitor, upward trending renal functions likely correlated with recent contrast use - Based was discussed with , who agrees with continue to hold Lasix therapy but believes it is reasonable to not initiate intravenous fluids at this time given comorbid heart disease. - If oral intake remains poor may consider initiation of fluids in the a.m.. #Atrial fibrillation - Heparin drip now DC'd. PO however NPO given poor swallowing response with sedation - Will start prophylactic dose of Heparin while NPO, anticipate restarting Eloquis once stable. - We will continue to monitor on telemetry . Pt hemodynamically stable, rate low to normal. #Cardiovascular disease #Congestive heart failure #Valvular heart disease - Continue patient's home medications including statin - Doing critical aortic stenosis and mitral stenosis volumes status is challenging but patient certainly at risk for volume overload - As such we have deferred aggressive hydration even in the setting of contrast- induced nephropathy. - Would recommend reaching out living manager Dr. May in a.m. for further recommendations on hydration status and management. #Pleural effusion - Supplemental oxygen as needed - Holding home Lasix however given poor renal functioning. - May consider drainage if breathing function declines but this is currently stable. #Osteoporosis - Continue weekly Alendronate in addition to vitamin D supple mentation. #DM - Continue sliding scale insulin Exam Vital Signs (Last) Date Time Temp Pulse Resp B/P Pulse Ox O2 Delivery O2 Flow Rate FiO2 02/02/17 04:51 70 6 02/02/17 01:00 Nasal Cannula 2.00 02/01/17 05:54 36.7 84/34 99 Test 01/26/17 15:34 01/27/17 01:22 01/27/17 04:30 01/28/17 08:25 Total Creatine Kinase 48U/L (21-215) Urine Color Yellow (YELLOW) Urine Appearance Clear (CLEAR,HAZY) Urine pH 5.0 (5.0-8.0) Urine Specific [place] 1.020 (1.003-1.035) Urine Protein Negativemg/dL (NEG,TRACE) Urine Glucose (UA) Negativemg/dL (NEGATIVE) Urine Ketones Negativemg/dL (NEGATIVE) Urine Occult Blood Negative (NEGATIVE) Urine Nitrite Negative (NEGATIVE) Urine Bilirubin Negative (NEGATIVE) Urine Urobilinogen Normalmg/dL (NORMAL) Urine Leukocyte Esterase Trace (NEGATIVE) Urine RBC 0-2/hpf (0-2) Urine WBC 0-5/hpf (0-5) Urine Epithelial Cells Few/hpf (NONE-MOD) Urine Crystals None seen (NONE SEEN) Urine Bacteria Few/hpf (NONE-FEW) Urine Hyaline Casts None/lpf (NONE) Urine Granular Casts None seen (NONE SEEN) Urine Waxy Casts None seen (NONE SEEN) Urine Red Blood Cell Casts None seen (NONE SEEN) Urine White Blood Cell Casts None seen (NONE SEEN) Urine Mucus None seen (None Seen) Urine Trichomonas None seen (NONE SEEN) Urine Yeast None (NONE SEEN) Urinalysis Comment None Urine Culture Reflexed Indicated Hemoglobin A1c 5.9% (4.8-5.6) Magnesium Level 2.1mg/dL (1.6-2.6) Prothrombin Time 12.7sec (8.1-12.5) Prothromb Time International Ratio 1.18ratio Activated Partial Thromboplast Time 88.6sec (22.8-33.0) Test 01/30/17 14:10 01/31/17 05:05 Lactic Acid Level 1.4mmol/L (0.4-2.0) White Blood Count 15.7th/mm3 (3.8-10.1) Red Blood Count 3.47mil/mm3 (3.90-5.20) Hemoglobin 12.5g/dL (12.0-15.6) Hematocrit 38.9% (35.0-46.0) Mean Corpuscular Volume 112.1fL (81-100) Mean Corpuscular Hemoglobin 36.0pg (27.0-35.0) Mean Corpuscular Hemoglobin Concent 32.1% (32.0-37.0) Red Cell Distribution Width 15.0% (12.3-15.4) Platelet Count 104bil/L (150-400) Neutrophils (%) (Auto) 92.2% (40-74) Lymphocytes (%) (Auto) 1.8% (14-46) Monocytes (%) (Auto) 5.7% (4-12) Eosinophils (%) (Auto) 0% (0-5) Basophils (%) (Auto) 0% (0-3) Hematology Comments Macrocytosis Sodium Level 133mEq/L (134-144) Potassium Level 5.4mEq/L (3.5-5.2) Chloride Level 90mEq/L (97-108) Carbon Dioxide Level 26mmol/L (18-29) Blood Urea Nitrogen 67mg/dL (8-27) Creatinine 2.26mg/dL (0.57-1.00) Estimat Glomerular Filtration Rate 30mL/min (>59) Glucose Level 147mg/dL (60-99) Calcium Level 8.5mg/dL (8.5-10.1) Total Bilirubin 1.7mg/dL (0.0-1.2) Aspartate Amino Transf (AST/SGOT) 16U/L (0-50) Alanine Aminotransferase (ALT/SGPT) 12U/L (0-32) Alkaline Phosphatase 62U/L (25-165) Total Protein 5.4g/dL (6.4-8.4) Albumin 3.1g/dL (3.4-5.0) Discharge Medications Discharge Medications Alendronate Sodium (Fosamax) 70 Mg Tablet 70 MG PO WEEKLY (Reported) FRIDAYS Amitriptyline (Amitriptyline) 25 Mg Tab 50 MG PO HS (Reported) Amoxicillin (Amoxicillin) 500 Mg Capsule 500 MG PO BID (Reported) Apixaban (Eliquis) 2.5 Mg Tablet 2.5 MG PO BID (Reported) Cholecalciferol (Vitamin D3) (Vitamin D3) 2,000 Unit Tablet 2,000 UNIT PO DAILY (Reported) Ferrous Sulfate (Ferrous Sulfate) 325 Mg Tablet 325 MG PO DAILY (Reported) Folic Acid (Folic Acid) 0.8 Mg Capsule 0.8 MG PO QPM (Reported) Furosemide (Furosemide) 80 Mg Tab 80 MG PO QAM (Reported) Hydrocodone-Acetaminophen 5-325 mg (Hydrocodone-Acetaminophen 5-325 mg) 1 Each Tablet 1 EACH PO Q4hrs (Reported) Magnesium Chloride (Mag64) 64 Mg Tablet.er 64 MG PO DAILY (Reported) Multivits-Min/FA/Lycopene/Lut (Centrum Silver Tablet) 1 Each Tablet 1 EACH PO DAILY (Reported) Omeprazole Magnesium (Prilosec Otc) 20 Mg Tablet.dr 20 MG PO DAILY (Reported) Potassium Chloride (Potassium Chloride) 20 Meq Tab.er.prt 20 MEQ PO BID ( Reported) Potassium Chloride ER (Potassium Chloride ER) 8 Meq Tablet 8 MEQ PO Q2D ( Reported) Rosuvastatin Calcium (Crestor) 10 Mg Tablet 5 MG PO DAILY (Reported) As needed Acetaminophen (Acetaminophen) 500 Mg Tablet 500 MG PO Q6H PRN PRN For Pain ( Reported) Loperamide (Loperamide) 2 Mg Capsule 4 MG PO Q4H PRN PRN For Diarrhea or Loose Stool (Reported) Ondansetron (Ondansetron) 8 Mg Tablet 8 MG PO TID PRN PRN For Nausea (Reported) Prochlorperazine Maleate (Prochlorperazine) 10 Mg Tablet 10 MG PO QID PRN PRN For Nausea (Reported) Followup Plan Disposition: Patient at 5:50 AM under comfort care measures only Time spent 20 minutes Paige Mayo MD Feb 02, 2017 19:32
== END 2017-02-02 05:05 | disposition expired | DRG 252 ==
LOC: SED 14:23 → MPC 16:59
PROVIDERS: ADMIT Family Medicine; ATTEND Family Medicine
PROC: 047H3ZZ Dilation of Right External Iliac Artery, Percutaneous Approach (ICD-10-PCS; principal; 2017-01-28)
PROC: B41FYZZ Fluoroscopy of Right Lower Extremity Arteries using Other Contrast (ICD-10-PCS; 2017-01-28)
PROC: 3E0T3BZ Introduction of Anesthetic Agent into Peripheral Nerves and Plexi, Percutaneous Approach (ICD-10-PCS; 2017-01-31)
DX: I70.261 Atherosclerosis of native arteries of extremities with gangrene, right leg (principal); G93.41 Metabolic encephalopathy; I50.30 Unspecified diastolic (congestive) heart failure; R64 Cachexia; J90 Pleural effusion, not elsewhere classified; C78.7 Secondary malignant neoplasm of liver and intrahepatic bile duct; N17.8 Other acute kidney failure; I35.2 Nonrheumatic aortic (valve) stenosis with insufficiency; Z79.01 Long term (current) use of anticoagulants; I48.91 Unspecified atrial fibrillation; I10 Essential (primary) hypertension; E78.5 Hyperlipidemia, unspecified; E11.42 Type 2 diabetes mellitus with diabetic polyneuropathy; Z95.0 Presence of cardiac pacemaker; E87.5 Hyperkalemia; E11.65 Type 2 diabetes mellitus with hyperglycemia; L97.519 Non-pressure chronic ulcer of other part of right foot with unspecified severity; N14.1 Nephropathy induced by other drugs, medicaments and biological substances; Z51.5 Encounter for palliative care; T50.995A Adverse effect of other drugs, medicaments and biological substances, initial encounter